=== PATIENT | male | born 1985 | race Caucasian/White ===

== ENCOUNTER 2017-07-04 11:24 | Day surgery (SDC) | payer MEDICARE, OTHER ==
[~2017-07-04 11:24] MED LIST: EFFEXOR XR75 MG PO; GLIMEPIRIDE2 MG PO; LISINOPRIL10 MG PO; MULTI VIT PO; PANTOPRAZOLE SO40 MG PO; TRILEPTAL150 MG PO
[2017-07-04 13:28] VITALS: BP 107/60
== END 2017-07-04 14:00 | disposition home or self-care (01) ==
LOC: ENDO 11:24
PROVIDERS: ATTEND Internal Medicine Gastroenterology
PROC: 0D758ZZ Dilation of Esophagus, Via Natural or Artificial Opening Endoscopic (ICD-10-PCS; principal; 2017-07-04)
PROC: 0DB98ZX Excision of Duodenum, Via Natural or Artificial Opening Endoscopic, Diagnostic (ICD-10-PCS; 2017-07-04)
PROC: 0DB58ZX Excision of Esophagus, Via Natural or Artificial Opening Endoscopic, Diagnostic (ICD-10-PCS; 2017-07-04)
PROC: 0DB48ZX Excision of Esophagogastric Junction, Via Natural or Artificial Opening Endoscopic, Diagnostic (ICD-10-PCS; 2017-07-04)
DX: K29.71 Gastritis, unspecified, with bleeding (principal); K21.0 Gastro-esophageal reflux disease with esophagitis; K22.8 Other specified diseases of esophagus; K44.9 Diaphragmatic hernia without obstruction or gangrene; I10 Essential (primary) hypertension; E11.9 Type 2 diabetes mellitus without complications

== ENCOUNTER 2017-12-23 17:03 | Emergency (ER) | payer MEDICARE, OTHER ==
[~2017-12-23] VITALS: Ht 185.4 cm; Wt 150.0 kg
[~2017-12-23 17:03] MED LIST changes: +DOXYCYC MONO100 M2 PO; +JANUVIA100 MG PO; +LANTUS100 UNIT/M SC; +LIPITOR20 M1 PO; +LORTAB 5/3255 MG PO; +NOVOLOG100 UNIT/M SC
[2017-12-23 19:40] VITALS: BP 120/75
== END 2017-12-23 19:45 | disposition home or self-care (01) ==
LOC: ED 17:03
DX: S63.502A Unspecified sprain of left wrist, initial encounter (principal); S63.92XA Sprain of unspecified part of left wrist and hand, initial encounter; E11.9 Type 2 diabetes mellitus without complications; I10 Essential (primary) hypertension; F41.9 Anxiety disorder, unspecified; F32.9 Major depressive disorder, single episode, unspecified; F17.210 Nicotine dependence, cigarettes, uncomplicated; W11.XXXA Fall on and from ladder, initial encounter; Y93.89 Activity, other specified; Y92.89 Other specified places as the place of occurrence of the external cause; Y99.0 Civilian activity done for income or pay

== ENCOUNTER 2018-08-23 16:12 | Emergency (ER) | payer OTHER ==
[~2018-08-23] VITALS: Ht 185.4 cm; Wt 192.6 kg
[2018-08-23] MEDS ORDERED: LEVEMIR FL100 UNIT/M SC (16:28)
[2018-08-23] MEDS ORDERED: DOXYCYC MONO100 M2 PO (16:29)
[2018-08-23] MEDS ORDERED: JANUVIA100 MG PO (16:30)
[2018-08-23] MEDS ORDERED: NOVOLOG FL100 UNIT/M SC (16:30)
[2018-08-23] MEDS ORDERED: SIMVASTATIN40 MG PO (16:31)
[2018-08-23] MEDS ORDERED: CELECOXIB200 MG PO (16:32)
[2018-08-23] MEDS ORDERED: MOBIC15 MG PO (16:49)
[2018-08-23 16:55] VITALS: BP 133/89
== END 2018-08-23 16:55 | disposition home or self-care (01) | DRG 951 ==
LOC: ED 16:12
DX: Z76.0 Encounter for issue of repeat prescription (principal); S66.902A Unspecified injury of unspecified muscle, fascia and tendon at wrist and hand level, left hand, initial encounter; E11.9 Type 2 diabetes mellitus without complications; I10 Essential (primary) hypertension; F17.200 Nicotine dependence, unspecified, uncomplicated; X58.XXXA Exposure to other specified factors, initial encounter; Y99.0 Civilian activity done for income or pay

== ENCOUNTER 2019-02-26 10:37 | Emergency (ER) | payer MEDICARE, OTHER ==
[~2019-02-26 10:37] MED LIST changes: +CELECOXIB200 MG PO; +LEVEMIR FL100 UNIT/M SC; +MOBIC15 MG PO; +NOVOLOG FL100 UNIT/M SC; +PANTOPRAZOLE SO40 M1 PO; -PANTOPRAZOLE SO40 MG PO; +SIMVASTATIN40 MG PO
[2019-02-26] MEDS ORDERED: PENICILLN VK500 MG PO (11:26)
[2019-02-26] MEDS ORDERED: VICODIN1 TA1 PO (11:32)
[2019-02-26 11:56] VITALS: BP 139/99
[2019-07-10] MEDS ORDERED: LYRICA150 MG PO (08:50)
[2019-07-10] MEDS ORDERED: PERCOCET 10/31 COMBO PO (08:52)
[2019-08-07] MEDS ORDERED: PERCOCET 10/31 COMBO PO (08:52)
[2019-08-07] MEDS ORDERED: LYRICA150 MG PO (08:53)
[2019-09-04] MEDS ORDERED: NEURONTIN600 MG PO (09:05)
[2019-09-04] MEDS ORDERED: PERCOCET 10/31 COMBO PO (09:06)
[2019-10-02] MEDS ORDERED: PERCOCET 10/31 COMBO PO (08:56)
[2019-10-02] MEDS ORDERED: NEURONTIN600 MG PO (08:57)
[2019-10-30] MEDS ORDERED: PERCOCET 10/31 COMBO PO (08:29)
[2019-11-27] MEDS ORDERED: PERCOCET 10/31 COMBO PO (08:24)
== END 2019-02-26 12:00 | disposition home or self-care (01) ==
LOC: ED 10:37
DX: K04.7 Periapical abscess without sinus (principal); K02.9 Dental caries, unspecified; E11.9 Type 2 diabetes mellitus without complications; I10 Essential (primary) hypertension; F17.210 Nicotine dependence, cigarettes, uncomplicated; F17.220 Nicotine dependence, chewing tobacco, uncomplicated; Z79.4 Long term (current) use of insulin

== ENCOUNTER 2019-03-10 13:43 | Observation (INO) | payer MEDICARE, OTHER ==
[~2019-03-10] VITALS: Ht 185.4 cm; Wt 145.0 kg
[~2019-03-10 13:43] MED LIST changes: +PENICILLN VK500 MG PO; +VICODIN1 TA1 PO
--- NOTE | 2019-03-10 13:55 | NUR ---
PT TO ROOM VIA WHEELCHAIR.
--- NOTE | 2019-03-10 14:30 | NUR ---
PT TOLERATING IV ABT WELL. PT HAS ERUPTION TO RT INNER GROIN, LT RIB AREA AND RT AXILLA.
[2019-03-10 14:41] LABS: HEMATOCRIT 43.8 % (39.0-50.0); HEMOGLOBIN 14.2 g/dl (14.0-18.0); IMMATURE GRANULOCYTES 0.5 % (0.0-5.0); MEAN CELL VOLUME 84.2 fL CALC (80.0-100.0); MEAN CORPUSCULAR HGB 27.3 pG CALC (26.0-32.0); MEAN CORPUSCULAR HGB CONC 32.4 g/L CALC (32.0-36.0); NEUT# 15.57 thou/uL (1.82-7.42); RED BLOOD COUNT 5.2 mill/uL (4.70-6.10); RED CELL DISTRI WIDTH 14.6 % (11.5-15.5)
[2019-03-10 15:04] LABS: ALKALINE PHOSPHATASE 102 u/l (38-126); ANION GAP 17 (6-22 (CALC)); BILIRUBIN, TOTAL 0.8 mg/dL (0.0-1.4); BUN 11 mg/dL (9-20); BUN/CREATININE RATIO 27 (12-20 (CALC)); CARBON DIOXIDE 21 mmol/l (22-30); CHLORIDE 101 mmol/l (95-108); CREATININE 0.4 mg/dL (0.7-1.3); GFR > 60 ML/MIN (>=60 (CALC)); GFR FOR AFR.AMER. > 60 ML/MIN (>=60 (CALC)); POTASSIUM 3.9 mmol/l (3.5-5.1); SGOT/AST 13 u/l (17-59); SODIUM 135 mmol/l (137-146); TOTAL PROTEIN 6.9 g/dL (6.3-8.2)
--- NOTE | 2019-03-10 16:55 | NUR ---
PT MAKES MX REQUESTS FOR DRINKS,ICE CHIPS AND WATER AND DIET SODA GIVEN FREQUENTLY. IVF BOLUS AND IV ABT CONTINUES. PT TOLERATING WELL
--- NOTE | 2019-03-10 17:33 | NUR ---
PT CONTINUES ON IV ABT IN NO DISTRESS. PT SITTING UP ON SIDE OF BED TO "ALLEVIATE MY BACK". PT UPDATED ON WAIT TIME AND ADMIT PLAN.FAMILY AT BEDSIDE.
--- NOTE | 2019-03-10 18:22 | NUR ---
PT ARRIVED TO MS2 VIA WHEELCHAIR ACCOMPANIED BY ER NURSE AND FAMILY MEMBERS. PT ALERT AND ORIENTED X3, ORIENTED TO ROOM AND CALL LIGHT. CALL LIGHT IN REACH,CONTINUE TO MONITOR.
[2019-03-10 18:27] VITALS: BP 142/20
--- NOTE | 2019-03-10 18:33 | NUR ---
TRANSPORTED TO HI VIA WITH SLIGHT DRY HEAVES IN ELEVATOR. PT STATES THIS IS D/T "MY HERNIA. THIS HAPPENS SOMETIMES". REPORTED TO YANI ORDONEZ ON MS
--- NOTE | 2019-03-10 19:00 | NUR ---
PT HAD 600ML OF TEACOLORED EMESIS. WILL NOTIFY MD FOR PRN ZOFRAN ORDER.
--- NOTE | 2019-03-10 19:30 | NUR ---
PT SITTING UPRIGHT IN BED, NO S/O DISTRESS NOTED, DENIES ANY NEEDS AT THIS TIME. CALL LIGHT AT SIDE AND PT REORIENTED TO ITS USE. BED ALARM IS ON.
[2019-03-10 20:26] LABS: URINE BILIRUBIN - DIPSTICK NEGATIVE (NEGATIVE); URINE BLOOD DIPSTICK NEGATIVE (NEGATIVE); URINE COLOR YELLOW; URINE GLUCOSE - DIPSTICK 500 mg/dL (NEGATIVE); URINE KETONE >=80 mg/dL (NEGATIVE); URINE LEUK ESTERASE NEGATIVE (NEGATIVE); URINE NITRITE - DIPSTICK NEGATIVE (Negative); URINE PH 5.5 (4.5-8.0); URINE PROTEIN - DIPSTICK NEGATIVE (NEG-TRACE); URINE SPECIFIC GRAVITY >=1.030; URINE UROBILINOGEN - DIPSTICK 0.2 E.U./dL (0.2)
--- NOTE | 2019-03-10 20:36 | NUR ---
PT MEDICATED FOR NAUSEA AND PAIN. PT SITTING ON SIDE OF THE BED. REPORTS HAVING JUST VOMITED, DAY NURSE IS AWARE AND MEASURED EMESIS. PT STATES HE HASN'T EATEN ALL DAY AND IS HUNGRY, POC DISCUSSED W/PT. SLACKLINE OPERATOR INFORMED PT THAT ICE CHIPS IS THE BEST THING IF HE IS N/V. HE STATES HE "CAN'T DO MORE ICECHIPS," REPORTS HE HAS ALREADY BEEN DOING THAT. ASKING FOR SODA, PROVIDED DIET GINERALE OVER ICE. WILL CONTINUE TO MONITOR.
--- NOTE | 2019-03-10 21:45 | NUR ---
PT REPORTS FEELING MUCH BETTER, ASKING FOR SOMETHING TO EAT, DISCUSSED OPTIONS W/PT AND HE AGREED TO TRY CHICKEN BROTH/PROVIDED.
--- NOTE | 2019-03-10 22:30 | NUR ---
PT REQUESTING ADDITIONAL CHICKEN BROTH W/GINGERALE/PROVIDED DIET GINGERALE AND BROTH PER REQUEST. REPORTS FEELING BETTER AFTER EATING THE FIRST CUP OF BROTH.
[2019-03-11 03:03] VITALS: BP 142/84
--- NOTE | 2019-03-11 03:14 | NUR ---
PT MEDICATED ORDERS PROVIDE FOR PAIN AND NAUSEA. PT PROVIDED BROTH AND [place]EN[place] ICE FOR COMFORT/REQUEST. DISCUSSED PT GETTING CLEANED UP, PROVIDED PT W/GAUZE FOR GROIN AREA, SMALL AMOUNT OF DISCHARGE COMING FROM ABCESS TO AREA. PT STATED HE MAY GET SHOWER LATER MORNING. NUTRITION CLUB AMBASSADOR OFFERED TO ASSIST IN CLEANING AREA W/NS. REFUSED.
[2019-03-11 07:24] VITALS: BP 144/78
--- NOTE | 2019-03-11 07:24 | NUR ---
PT RESTING IN BED, NO SIGNS OF DISTRESS NOTED, RESP EVEN AND UNLABORED. PT ALERT AND ORIENTED X3, STATES HE HAS PAIN 7/10, SOME NAUSEA BUT NO EMESIS. NOTED PT HAS MULTIPLE PUSTULES TO HIS BACK NONE OPEN OR DRAINING. PT STATES HE WAS PRESCRIBED DOXY PO TO TAKE FOR THE REST OF HIS LIFE BY HIS PCP PRIOR TO MOVING TO [place]. STATES ABSCESSES ARE NOTHING NEW TO HIM, DENIES HX OF MRSA. DISCUSSED POC, PT AGREES. CALL LIGHT IN REACH,CONTINUE TO MONITOR.
--- NOTE | 2019-03-11 08:45 | NUR ---
PT SITTING ON SIDE OF BED EATING BREAKFAST, DISCUSSED PHOTO NEEDED FOR DOCUMENTATION PURPOSES, PT AGREES. PHOTO OBTAINED, SEE CHART FOR PHOTO, NO DRAINAGE NOTED, AREA NOTED TO BE RED AND HARD, PT STATES HE HAD TRIED POPPING IT BY SQUEEZING IT. CALL LIGHT IN REACH,CONTINUE TO MONITOR.
--- NOTE | 2019-03-11 10:00 | NUR ---
PT RESTING IN BED WATCHING TV, DISCUSSED NEED FOR SWAB. PT C/O SEVERE PAIN 10/10 TO R INNER THIGH, STATES FROM SHOWER AND GUYLINE OPERATOR ASSESSING WOUND. PT MEDICATED FOR PAIN, AND SWAB OBTAINED. FOUL-SMELLING DRAINAGE NOTED ONCE PRESSURE APPLIED, CALL LIGHT IN REACH,CONTINUE TO MONITOR.
[2019-03-11 10:18] LABS: HEMATOCRIT 40.8 % (39.0-50.0); IMMATURE GRANULOCYTES 0.4 % (0.0-5.0); MEAN CELL VOLUME 85.5 fL CALC (80.0-100.0); MEAN CORPUSCULAR HGB 27.3 pG CALC (26.0-32.0); MEAN CORPUSCULAR HGB CONC 31.9 g/L CALC (32.0-36.0); NEUT# 8.35 thou/uL (1.82-7.42); RED BLOOD COUNT 4.77 mill/uL (4.70-6.10); RED CELL DISTRI WIDTH 14.6 % (11.5-15.5)
[2019-03-11 10:40] LABS: ALBUMIN 3.6 g/dL (3.2-5.0); ALKALINE PHOSPHATASE 76 u/l (38-126); ANION GAP 16 (6-22 (CALC)); BILIRUBIN, TOTAL 0.8 mg/dL (0.0-1.4); BUN 11 mg/dL (9-20); BUN/CREATININE RATIO 32 (12-20 (CALC)); CARBON DIOXIDE 20 mmol/l (22-30); CHLORIDE 100 mmol/l (95-108); CREATININE 0.3 mg/dL (0.7-1.3); GFR > 60 ML/MIN (>=60 (CALC)); GFR FOR AFR.AMER. > 60 ML/MIN (>=60 (CALC)); SGOT/AST 17 u/l (17-59); SODIUM 132 mmol/l (137-146); TOTAL PROTEIN 6.4 g/dL (6.3-8.2)
[2019-03-11 11:14] VITALS: BP 126/91
--- NOTE | 2019-03-11 12:44 | NUR ---
NEW ORDERS FOR COLD COMPRESS TO L INNER THIGH AND HOT COMPRESS TO R UNDER ARM. PT AGREES WITH PLAN. CALL LIGHT IN REACH,CONTINUE TO MONITOR.
--- NOTE | 2019-03-11 13:35 | NUR ---
KPAD APPLIED TO R UNDER ARM. MEDICATED FOR PAIN, CONTINUE TO MONITOR.
[2019-03-11 15:53] VITALS: BP 135/83
--- NOTE | 2019-03-11 16:00 | NUR ---
PT RESTING IN BED, FAMILY AT BEDSIDE. NEW ICE PACK PROVIDED, KPAD CONTINUES TO R ARM. CALL LIGHT IN REACH,CONTINUE TO MONITOR.
--- NOTE | 2019-03-11 17:33 | NUR ---
PT C/O NAUSEA AND PAIN , PT MEDICATED WITH ZOFRAN AND PERCOCET 2 COMBO. CALL LIGHT IN REACH, CONTINUE TO MONITOR.
--- NOTE | 2019-03-11 18:12 | NUR ---
PT SITTING IN BED, NEW ICE PACK PROVIDED. CALL LIGHT IN REACH,CONTINUE TO MONITOR.
[2019-03-11 18:35] VITALS: BP 134/66
--- NOTE | 2019-03-11 19:23 | NUR ---
PT STANDING IN BATHROOM STATING " THIS ONE UNDER MY ARM POPPED" . STATES THAT HIS ABSCESS WAS ITCHING AND WHEN HE SCRTCHED IT, IT POPPED. BLOOD NOTED TO TOWEL, AND SURROUNDING SKIN RED. FOUL SMELL NOTED. NEW GOWN PROVIDED. ABD PAD PLACED UNDER ARM WITH TUBULAR NETTING MESH APPLIED TO KEEP IT IN PLACE. ABD PAD IN GROIN AREA INSPECTED, SANGUINEOUS DRAINAGE NOTED. NO COMPLAINTS FROM PT AT THIS TIME. PT A&O X3. NO DISTRESS NOTED. DISCUSSED POC. ASSESSMENT COMPLETED. CALL LIGHT IN REACH. CONTINUE TO MONITOR.
--- NOTE | 2019-03-11 21:28 | NUR ---
PT C/O THROBBING PAIN 8/10 IN GROIN AREA WHERE ABSCESS IS LOCATED. WILL REASSES PAIN.
--- NOTE | 2019-03-11 23:00 | NUR ---
PT SITTING IN BED WATCHING TV. NO DISTRESS NOTED. PT STATES HE IS "COMFORTABLE" AT THIS TIME. CALL LIGHT IN REACH. CONTINUE TO MONITOR.
[2019-03-11 23:40] VITALS: BP 138/86
--- NOTE | 2019-03-11 23:55 | NUR ---
PT SITTING IN BED WATCHING TV. NO DISTRESS NOTED. CALL LIGHT IN REACH. CONTINUE TO MONITOR.
--- NOTE | 2019-03-12 01:27 | NUR ---
PT C/O SHARP PAIN 9/10 IN GROIN AREA WHERE ABSCESS IS LOCATED. WILL RE-EVALUATE PAIN
--- NOTE | 2019-03-12 03:27 | NUR ---
PT SITTING IN BED WATCHING TV. STATES THAT HE WAS ABLE TO SLEEP A FEW MINUTES. NO OTHER NEEDS AT THIS TIME. CALL LIGHT IN REACH. CONTINUE TO MONITOR.
[2019-03-12 04:10] VITALS: BP 119/56
--- NOTE | 2019-03-12 05:10 | NUR ---
PT RESTING IN BED. STATES HE WAS ABLE TO SLEEP A WHILE LONGER. NO NEEDS AT THIS TIME. CALL LIGHT IN REACH. CONTINUE TO MONITOR.
--- NOTE | 2019-03-12 06:09 | NUR ---
PT C/O OF SHARP/THROBBING PAIN IN GROIN AREA WHERE ABSCESS IS LOCATED. PERCOCET GIVEN WILL RE-EVALUATE PAIN
[2019-03-12 06:29] LABS: HEMATOCRIT 42.6 % (39.0-50.0); HEMOGLOBIN 13.4 g/dl (14.0-18.0); IMMATURE GRANULOCYTES 0.4 % (0.0-5.0); MEAN CELL VOLUME 86.1 fL CALC (80.0-100.0); MEAN CORPUSCULAR HGB 27.1 pG CALC (26.0-32.0); MEAN CORPUSCULAR HGB CONC 31.5 g/L CALC (32.0-36.0); NEUT# 8.74 thou/uL (1.82-7.42); RED BLOOD COUNT 4.95 mill/uL (4.70-6.10); RED CELL DISTRI WIDTH 14.6 % (11.5-15.5)
[2019-03-12 06:39] LABS: ALBUMIN 3.5 g/dL (3.2-5.0); ALKALINE PHOSPHATASE 88 u/l (38-126); BUN 10 mg/dL (9-20); BUN/CREATININE RATIO 26 (12-20 (CALC)); CHLORIDE 99 mmol/l (95-108); CREATININE 0.4 mg/dL (0.7-1.3); GFR > 60 ML/MIN (>=60 (CALC)); GFR FOR AFR.AMER. > 60 ML/MIN (>=60 (CALC)); POTASSIUM 3.8 mmol/l (3.5-5.1); SGOT/AST 15 u/l (17-59); SODIUM 134 mmol/l (137-146); TOTAL PROTEIN 6.4 g/dL (6.3-8.2)
[2019-03-12 06:40] LABS: ANION GAP 13 (6-22 (CALC)); BILIRUBIN, TOTAL 0.4 mg/dL (0.0-1.4); CARBON DIOXIDE 26 mmol/l (22-30)
[2019-03-12 07:33] VITALS: BP 107/67
[2019-03-12 08:21] VITALS: BP 107/67
--- NOTE | 2019-03-12 09:00 | NUR ---
PT SEEN AWAKE, ALERT, ORIENTED X 3. LUNGS CLEAR, RA, AMBULATORY IN ROOM. PT SEEN TO HAVE REDNESS PER ABSCESS TO RIGHT GROIN AND RIGHT UPPER ARM MEDIALLY. PT REQUESTS PAIN MEDS AVAILABLE.
[2019-03-12] MEDS ORDERED: BACTRIM DS1 TAB PO (10:07)
[2019-03-12] MEDS ORDERED: PERCOCET 5/325M1 TAB PO (10:07)
[2019-03-12] MEDS ORDERED: DOXYCYC MONO100 M2 PO (10:07)
--- NOTE | 2019-03-12 12:30 | NUR ---
PT HAS BEEN DISCHARGED TO HOME. PT VERBALIZES UNDERSTANDING OF DC INSTRUCTIONS, AMBULATES TO LOBBY INSTEAD OF WHEELCHAIR.
[2019-07-10] MEDS ORDERED: LYRICA150 MG PO (08:50)
[2019-07-10] MEDS ORDERED: PERCOCET 10/31 COMBO PO (08:52)
[2019-08-07] MEDS ORDERED: PERCOCET 10/31 COMBO PO (08:52)
[2019-08-07] MEDS ORDERED: LYRICA150 MG PO (08:53)
[2019-09-04] MEDS ORDERED: NEURONTIN600 MG PO (09:05)
[2019-09-04] MEDS ORDERED: PERCOCET 10/31 COMBO PO (09:06)
[2019-10-02] MEDS ORDERED: PERCOCET 10/31 COMBO PO (08:56)
[2019-10-02] MEDS ORDERED: NEURONTIN600 MG PO (08:57)
[2019-10-30] MEDS ORDERED: PERCOCET 10/31 COMBO PO (08:29)
[2019-11-27] MEDS ORDERED: PERCOCET 10/31 COMBO PO (08:24)
== END 2019-03-12 12:28 | disposition home or self-care (01) ==
LOC: ED 13:43 → ED-I 15:58 → ED 16:31 → MS2 16:32
PROVIDERS: Emergency Medicine; Nurse Practitioner Family; ADMIT Internal Medicine; ATTEND Internal Medicine
DX: L03.115 Cellulitis of right lower limb (principal); L02.416 Cutaneous abscess of left lower limb; L02.413 Cutaneous abscess of right upper limb; L03.113 Cellulitis of right upper limb; L73.9 Follicular disorder, unspecified; L70.0 Acne vulgaris; E11.65 Type 2 diabetes mellitus with hyperglycemia; I10 Essential (primary) hypertension; F17.200 Nicotine dependence, unspecified, uncomplicated; K21.9 Gastro-esophageal reflux disease without esophagitis; E78.5 Hyperlipidemia, unspecified; E66.8 Other obesity; Z68.41 Body mass index [BMI] 40.0-44.9, adult; Z79.4 Long term (current) use of insulin; Z91.11 Patient's noncompliance with dietary regimen
CPT/HCPCS: G0378

== ENCOUNTER 2019-03-15 | Inpatient (IN) | payer MEDICARE, OTHER ==
--- NOTE | 2019-03-14 17:54 | NUR ---
TO ROOM VIA WHEELCHAIR
--- NOTE | 2019-03-14 18:10 | NUR ---
PT PRESENTS WITH COMPLAINTS OF PAIN 10/10 OF SCROTAL PAIN. PT STATES THAT HE HAS SEVERE ACHNE THAT CAN CAUSE CYSTS AND BOILS ALL OVER BODY. IN THE AREAS OF INCREASE SWEAT CYSTS THAT BURST CAUSE OPEN SORES AND SOME ARE DRAINING AND INFECTED IN THE INNER RIGHT THIGH. THAT REDNESS, SWELLING AND INFECTION HAS SPREAD TO HIS TESTICLES THAT ARE ENLARGED AND RED. PT STATES BEING IN INCREASING PAIN. WILL CONTINUE TO MONITOR PT TEMP IS 101.7 F
[2019-03-14 18:40] LABS: HEMATOCRIT 38.2 % (39.0-50.0); HEMOGLOBIN 12.5 g/dl (14.0-18.0); IMMATURE GRANULOCYTES 0.4 % (0.0-5.0); MEAN CELL VOLUME 83.4 fL CALC (80.0-100.0); MEAN CORPUSCULAR HGB 27.3 pG CALC (26.0-32.0); MEAN CORPUSCULAR HGB CONC 32.7 g/L CALC (32.0-36.0); NEUT# 6.53 thou/uL (1.82-7.42); RED BLOOD COUNT 4.58 mill/uL (4.70-6.10); RED CELL DISTRI WIDTH 14.2 % (11.5-15.5)
[2019-03-14 19:01] LABS: ALBUMIN 3.4 g/dL (3.2-5.0); ALKALINE PHOSPHATASE 75 u/l (38-126); ANION GAP 13 (6-22 (CALC)); BILIRUBIN, TOTAL 0.3 mg/dL (0.0-1.4); BUN 9 mg/dL (9-20); BUN/CREATININE RATIO 25 (12-20 (CALC)); CARBON DIOXIDE 24 mmol/l (22-30); CHLORIDE 101 mmol/l (95-108); CREATININE 0.3 mg/dL (0.7-1.3); GFR > 60 ML/MIN (>=60 (CALC)); GFR FOR AFR.AMER. > 60 ML/MIN (>=60 (CALC)); POTASSIUM 3.9 mmol/l (3.5-5.1); SGOT/AST 14 u/l (17-59); SODIUM 134 mmol/l (137-146); TOTAL PROTEIN 6.1 g/dL (6.3-8.2)
--- NOTE | 2019-03-14 19:36 | NUR ---
PT AT RADIOLOGY.
[2019-03-14 19:38] LABS: URINE BLOOD DIPSTICK NEGATIVE (NEGATIVE); URINE COLOR YELLOW; URINE GLUCOSE - DIPSTICK NEGATIVE (NEGATIVE); URINE KETONE 40 mg/dL (NEGATIVE); URINE NITRITE - DIPSTICK NEGATIVE (Negative); URINE PH 5.5 (4.5-8.0); URINE PROTEIN - DIPSTICK NEGATIVE (NEG-TRACE); URINE SPECIFIC GRAVITY 1.015; URINE UROBILINOGEN - DIPSTICK 0.2 E.U./dL (0.2)
--- NOTE | 2019-03-14 20:08 | NUR ---
PT STATES THAT AFTER RADIOLOGY VISIT FOR ULTRASOUND HE IS IN PAIN OF 10/10. IT WAS REASSESSED THAT IF PAIN MEDICATION HELPED, BUT PT STATES THAT BEFORE ULTRASOUND IT WAS 6/10 AND AFTER TESTICULAR MANIPULATION IT IS 10/10. NOTIFIED.
[2019-03-14 20:40] LABS: URINE BILIRUBIN - DIPSTICK SMALL (NEGATIVE); URINE LEUK ESTERASE SMALL (NEGATIVE)
[2019-03-14 20:53] LABS: URINE SQUAMOUS EPITHELIAL CELL FEW EPI/hpf (0-FEW)
[2019-03-14 21:04] LABS: BARBITURATES NEGATIVE (NEGATIVE); COCAINE NEGATIVE (NEGATIVE); METHADONE NEGATIVE (NEGATIVE); OXCYCODONE POSITIVE (NEGATIVE); TETRAHYDROCANNABIONOL POSITIVE (NEGATIVE); TRICYLIC ANTIDEPRESSANTS NEGATIVE (NEGATIVE)
--- NOTE | 2019-03-14 21:16 | NUR ---
MEDICATION GIVIN TO PT. PT STATES THAT HIS BEGINNING PAIN BEFORE THIS MEDICATION IS 8/10. PT DENIES ANY NEEDS AT THIS TIME.
--- NOTE | 2019-03-14 21:58 | NUR ---
CALLED ICU CORNELIUS FOR REPORT
--- NOTE | 2019-03-14 22:46 | NUR ---
PT ARRIVED TO UNIT VIA STRETCHER WITH ER STAFF; ALERT AND ORIENTED X 3; FIANCE AT BEDSIDE. PT AMBULATED TO BED WITH STEADY GAIT AND WEIGHT OBTAINED. C/O 9/10 PAIN TO GROIN AND RIGHT THIGH; REDNESS AND WARMTH NOTED TO ENTIRE RLE AND IT IS NOTICABLY LARGER; OPEN AREA IN CREVICE BETWEEN TESTICLES AND RIGHT THIGH; PHOTOS OBTAINED AND PLACED IN CHART. RESPIRATIONS EVEN AND UNLABROED ON ROOM AIR. LUNGS ARE CLEAR; VSS. ORIENTED TO ROOM AND CALL LIGHT SYSTEM. PLAN OF CARE DISCUSSED. PT ENCOURAGED TO VERBALIZE CONCERNS. STATES UNDERSTANDING. SAFETY MEASURES IN PLACE. CALL LIGHT WITHIN REACH.
--- NOTE | 2019-03-14 22:48 | NUR ---
PT TO FLOOR VIA STRETCHER...S.O. AT BEDSIDE.
[2019-03-14 22:50] VITALS: BP 145/62
--- NOTE | 2019-03-14 23:16 | NUR ---
ACCU CHECK 221; LEVEMIR GIVEN ALONG WITH OTHER SCHEDULED MEDICATIONS. SNACK PROVIDED. PT ASKING FOR PAIN MEDICATION.
[~2019-03-15] MED LIST changes: +BACTRIM DS1 TAB PO; +PERCOCET 5/325M1 TAB PO
--- NOTE | 2019-03-15 00:47 | NUR ---
IV SITE TO LAC OCCLUDED; D/C'D AND NEW SITE PLACED TO RAC. ZOSYN GIVEN LATE DUE TO LACK OF VENOUS ACCESS. PT REQUESTING MORE SNACKS. PERCOCET GIVEN FOR 8/10 GROIN PAIN.
[2019-03-15 01:30] VITALS: BP 112/72
--- NOTE | 2019-03-15 02:08 | NUR ---
PT SITTING UP IN BED WATCHING TV; ALERT AND ORIENTED. STATES HE FEELS MUCH BETTER AFTER PERCOCET AND SNACKS. NO REQUESTS OR CONCERNS AT THIS TIME. CALL LIGHT WITHIN REACH.
--- NOTE | 2019-03-15 02:28 | NUR ---
ALL PROCESS INTERVENTIONS FOR INITITAL ADMISSION SHOULD BE DOCUMENTED ONLY FOR 03/14/19 AT 2245. ALL INTERVENTIONS CHARTED FOR 03/13/19 ARE CHARTED IN ERROR FOR WRONG DATE.
[2019-03-15 05:15] VITALS: BP 135/84
--- NOTE | 2019-03-15 07:30 | NUR ---
awake in bed; no apparent distress noted; assessment completed at this time; pt alert and oriented; complaints of pain to right inner groin area; no n/v noted; resp even and unlabored; lungs clear with faint wheezing noted; skin color wnl; ra; hr reg; strong pulses; no pedal edema noted; abd firm/ distended with bs present; no bm noted per teletypewriter installer; pt admits to voiding without complication; no urine to inspect at this time; #20 flushed and patent to rac; no redness or edema noted at site; redness noted to inner right thigh and leg; purulent drainage noted to inner right thigh; abd pad intact with ice packs; pt admits to decreased swelling to scrotum; plan of care/ am meds explained; call light within reach; will continue to monitor
--- NOTE | 2019-03-15 08:03 | NUR ---
awake in bed conversing on cell phone and eating breakfast; no apparent distress noted; offers no complaints at this time; call light within reach; will continue to monitor
--- NOTE | 2019-03-15 08:20 | NUR ---
pt completed breakfast tray; pt communications equipment installer light requesting food; diabetic diet explained; pt requesting additional food; will continue to monitor
--- NOTE | 2019-03-15 09:23 | NUR ---
S: ODALYS CHAVEZ is a 33 M who presents with Scrotal skin Cellulitis. He has a history of DM, HTN, Hernia, Anxiety/Depression, Obesity. All medications in patient's chart were reviewed. O: VS: BP: 135/83 mmHg , P: 81 bpm, RR: 22 breath per minutes,T: 97.3 F W: 159.891 kg, HT: 185.42 cm, Scr= 0.3 mg/dL,CrCl= 250 ml/min A: Blood culture is pending. Urine culture is pending. P: Patient is on Zosyn 3.375 GM IV Q6H. Vancomycin ordered for pharmacy to dose. Start Vancomycin 1,500 MG IV Q8H. Vancomycin trough is drawn 30 minutes before the 4th dose on 03/16/19 at 0930. Vancomycin goal trough is between 10-15 mcg/ml. Pharmacy will follow and or advise on antibiotics use as needed.
[2019-03-15 09:24] VITALS: BP 135/83
--- NOTE | 2019-03-15 10:11 | NUR ---
awake in bed; family present at bedside; medicated for complaints of pain; iv intact and patent; abt infusing without complication; call light within reach; will continue to monitor
--- NOTE | 2019-03-15 10:15 | NUR ---
Dr Painting present at bedside to assess pt and discuss plan of care;
--- NOTE | 2019-03-15 11:12 | NUR ---
anest at bedside
--- NOTE | 2019-03-15 12:15 | NUR ---
pt awake in bed; no apparent distress noted; pt medicated with pain meds as per request; pt requesting nicotine patch; will notify MD; iv intact and patent; call light within reach; will continue to monitor
[2019-03-15 14:00] VITALS: BP 112/68
--- NOTE | 2019-03-15 14:03 | NUR ---
awake in bed conversing on cell phone; no apparent distress noted; iv intact; call light within reach; will continue to monitor
--- NOTE | 2019-03-15 16:15 | NUR ---
awake in bed; spouse at bedside; no apparent distress noted; iv intact; call light within reach; will continue to monitor
--- NOTE | 2019-03-15 17:48 | NUR ---
dietary notified of pt request for A PITCHER of unsweet tea with each meal; provided
--- NOTE | 2019-03-15 18:15 | NUR ---
awake in bed; medicated with pain meds as per request; offers no additional complaints; iv intact and patent; abt infusing without complication; pt with complaints of newly developed "bump" to left lat elbow area; form to touch/ no drainage/no opening; spouse at bedside; plan of care for surgery explained; spouse to arrive at 0700/ surgery for 0800; call light within reach
--- NOTE | 2019-03-15 19:00 | NUR ---
PT LAYS WITH HOB 45 DEGREES. ON ROOM AIR. RFA IV INTACT. RIGH THIGH ABSCESS ASSESSED, PT ABLE TO CHANGE GAUZE PAD ON HIS OWN. HEAD TO TOE NURSING ASSESSMENT PERFORMES. ON ROOMAIR, NO SOB NOTED. POC DISCUSSED. KNOWS HE WILL BE NPO AFTER MIDNIGHT. REPORTS PAIN IS 9 WITH HIM MOVING HIS THIGH AND CHANGING THE GAUZE PAD ON HIS THIGH. EXPRESSES HIS CONCERN FOR HIM BEING OUT SICK FROM WORK AND FAMILY TIME. CALL LIGHT WITHIN REACH. UP AD ADAM. SELF REPSOITIONS.
--- NOTE | 2019-03-15 21:15 | NUR ---
PT GIVEN ICE PACK AND TURKEY SANDWICH HE REQUESTED. SITS UP. WATCHES TV. NO ACUTE DISTRES SSHOWN.
[2019-03-15 22:00] VITALS: BP 118/77
[2019-03-16] VITALS (9 sets, daily range): BP systolic 93–153; BP diastolic 66–81
--- NOTE | 2019-03-16 | NUR ---
PT LAYS WITH HOB 45 DEGREES. RESTS WITH EYES CLOSED. TV OFF. NO ACUTE DISTRES SSHOWN.
--- NOTE | 2019-03-16 00:11 | NUR ---
PAIN MEDICATION GIVEN PER REQUEST.
--- NOTE | 2019-03-16 02:10 | NUR ---
YANI SPANGLER IN ROOM TO MEDICATE 0200 VANCO DUE. PT LSEEPING. CALL LIGHT WITHIN REACH.
--- NOTE | 2019-03-16 04:22 | NUR ---
PATIENT LAYS WITH HOB 45 DEGREES. EASILY AWAKENS WITH NOISE. NO COMPLAINTS, NO NEEDS. CALL LIGHT WITHIN REACH.
[2019-03-16 04:56] LABS: HEMATOCRIT 34.2 % (39.0-50.0); IMMATURE GRANULOCYTES 0.4 % (0.0-5.0); MEAN CELL VOLUME 85.5 fL CALC (80.0-100.0); MEAN CORPUSCULAR HGB 27.5 pG CALC (26.0-32.0); MEAN CORPUSCULAR HGB CONC 32.2 g/L CALC (32.0-36.0); NEUT# 3.94 thou/uL (1.82-7.42); RED CELL DISTRI WIDTH 14.3 % (11.5-15.5)
[2019-03-16 05:16] LABS: ALBUMIN 2.8 g/dL (3.2-5.0); ALKALINE PHOSPHATASE 85 u/l (38-126); ANION GAP 10 (6-22 (CALC)); BUN 8 mg/dL (9-20); BUN/CREATININE RATIO 22 (12-20 (CALC)); CARBON DIOXIDE 25 mmol/l (22-30); CHLORIDE 105 mmol/l (95-108); CREATININE 0.4 mg/dL (0.7-1.3); GFR > 60 ML/MIN (>=60 (CALC)); GFR FOR AFR.AMER. > 60 ML/MIN (>=60 (CALC)); POTASSIUM 3.9 mmol/l (3.5-5.1); SGOT/AST 13 u/l (17-59); SODIUM 137 mmol/l (137-146); TOTAL PROTEIN 5.4 g/dL (6.3-8.2)
[2019-03-16 05:17] LABS: BILIRUBIN, TOTAL 0.1 mg/dL (0.0-1.4)
--- NOTE | 2019-03-16 08:00 | NUR ---
PT ALERT AND ORIENTED X 3. PT REMAINS NPO FOR SURGICAL PROCEDURE SOON. PT APPEARS UNCOMFORTABLE WITH MOVEMENT PER RIGHT GROIN ABSCESS. NO ACUTE DISTRESS, TO OR SOON.
--- NOTE | 2019-03-16 12:00 | NUR ---
PT RETURNED FROM OR AFTER PROCEDURE, UNCOMFORTABLE WITH PAIN UPON EXITING STRETCHER. PT MEDICATED FOR PAIN NEEDED. RIGHT GROIN AREA SEEN TO HAVE DRESSING OVER IT.
--- NOTE | 2019-03-16 14:51 | NUR ---
DRESSING CHANGED, REPACKED. PT TOLERATED WELL, MEDICATED AFTERWARD. WOUND SEEN 3-4 INCHES DEEP, PACKING REMOVED WITH RESISTANCE NOTED.
--- NOTE | 2019-03-16 15:36 | NUR ---
S: ODALYS CHAVEZ is a 33 M who presents with cellulitis. He has a history of T2DM, HTN, tobacco use, and anxiety/depression. All medications in patient's chart were reviewed. O: VS: BP: 105/65 mmHg, P: 87 beats/min, RR: 16 breaths/min, T: 97.9 F W: 160 kg, HT: 73 in, Scr: 0.4, CrCl: 250 ml/min Vancomycin trough on 03/16/19: 8 mcg/mL A: Blood culture is pending. Urine culture is complete and shows no growth. Wound culture is pending. Vancomycin trough is subtherapeutic, however pt is morbidly obese. Trough is expected to increase. Will re-check after 4 more doses. P: Patient is on Zosyn 3.375 gm IV Q6H. Vancomycin ordered for pharmacy to dose. Continue Vancomycin 1500 mg IV Q8H. Vancomycin trough is to be drawn on 03/17/19 at 17:30. Vancomycin goal trough is between 10-15 mcg/ml. Pharmacy will follow and or advise on antibiotics use as needed.
--- NOTE | 2019-03-16 17:54 | NUR ---
PT HAS AMBULATED AROUND NURSING STATION AND IN HALLWAY WITH . PT MEDICATED FOR PAIN NEEDED. WOUND CONTINES TO DRAIN EXPECTED.
--- NOTE | 2019-03-16 19:29 | NUR ---
PATIENT GIVEN DILAUDID BEFORE DRESSING CHANGE. WOUND HAS SEROUSSANGINUOUS DRAINAGE, LARGE AMOUNT, SOAKS THROUGH DRESSING. PATIENT TOLERATES WELL, FIANCE AT BEDSIDE. ABLE TO STAND UP TO CHANGE DIRTY PAD. NOW LAYS IN BED. CALL LIGHT WITHIN REACH.
--- NOTE | 2019-03-16 21:39 | NUR ---
PATIENT TOLERATES MEDS WELL. CHRISTELLE GE PER REQUEST. CALL LIGHT WITHIN REACH.
--- NOTE | 2019-03-16 22:54 | NUR ---
PERCOCET GIVEN PER REQUEST BY NURSE BOURNE.
--- NOTE | 2019-03-16 23:39 | NUR ---
PT REQUESTS DILAUDID, GIVEN BY NURSE BOURNE.
--- NOTE | 2019-03-17 01:24 | NUR ---
PT RESTS WITH EYES CLOSED. TV IS ON. NO ACUTE DISTRESS SHOWN. CALL LIGHT WITHIN REACH.
--- NOTE | 2019-03-17 05:50 | NUR ---
PT REQUESTS PAIN MEDICATION, PROVIDED. STANDS UP TO USE URINAL. CALL LIGHT WITHIN RECH.
[2019-03-17 07:15] VITALS: BP 110/76
--- NOTE | 2019-03-17 07:16 | NUR ---
PT VSS, NO S/S OF DISTRESS NOTED, IVF INFUSING, PT STATES PAIN 08/30, MEDICATED WITH ORAL PRN MED PER MAR, WILL CONTINUE TO MONITOR
[2019-03-17 11:49] VITALS: BP 138/81
--- NOTE | 2019-03-17 12:38 | NUR ---
PT VSS, NO S/S OF DISTRESS NOTED, EATING LUNCH, IV ANTIBIOOTIC INFUSING, WILL CONTINUE TO MONITOR.
--- NOTE | 2019-03-17 14:17 | NUR ---
PT RESTING COMFORTABLY IN BED, VSS, NO S/S OF DISTRESS NOTED, VANCO INFUSING
--- NOTE | 2019-03-17 15:45 | NUR ---
PT HAS NS 500ML INFUSING, VSS, NO S/S OF DISTRESS NOTED, MEDICATED FOR PAIN PER EMAR, WILL CONTINUE TO MONITOR.
[2019-03-17] MEDS ORDERED: BACTRIM DS1 TAB PO (16:24)
[2019-03-17] MEDS ORDERED: PERCOCET 5/325M1 TAB PO (16:27)
[2019-03-17 16:54] VITALS: BP 125/80
--- NOTE | 2019-03-17 17:05 | NUR ---
PT VSS, NO S/S OF DISTRESS NOTED, PT EDUCATED ON NEW MEDS OF PERCOCET, AND BACTRIUM, IV REMOVED, WORK NOTE GIVEN, RX GIVEN, INSTRUCTED ON HOME HEALTH AND DRESSING CHANGES.AMBULATED OUT WITH SPOUSE.
[2019-07-10] MEDS ORDERED: LYRICA150 MG PO (08:50)
[2019-07-10] MEDS ORDERED: PERCOCET 10/31 COMBO PO (08:52)
[2019-08-07] MEDS ORDERED: PERCOCET 10/31 COMBO PO (08:52)
[2019-08-07] MEDS ORDERED: LYRICA150 MG PO (08:53)
[2019-09-04] MEDS ORDERED: NEURONTIN600 MG PO (09:05)
[2019-09-04] MEDS ORDERED: PERCOCET 10/31 COMBO PO (09:06)
[2019-10-02] MEDS ORDERED: PERCOCET 10/31 COMBO PO (08:56)
[2019-10-02] MEDS ORDERED: NEURONTIN600 MG PO (08:57)
[2019-10-30] MEDS ORDERED: PERCOCET 10/31 COMBO PO (08:29)
[2019-11-27] MEDS ORDERED: PERCOCET 10/31 COMBO PO (08:24)
[2019-12-25] MEDS ORDERED: PERCOCET 10/31 COMBO PO (07:31)
[2019-12-25] MEDS ORDERED: NEURONTIN600 MG PO (07:32)
[2020-01-29] MEDS ORDERED: PERCOCET 10/31 COMBO PO (09:00)
[2020-02-26] MEDS ORDERED: PERCOCET 10/31 COMBO PO (09:09)
[2020-02-26] MEDS ORDERED: NEURONTIN600 MG PO (09:12)
[2020-03-27] MEDS ORDERED: PERCOCET 10/31 COMBO PO (08:56)
[2020-04-24] MEDS ORDERED: PERCOCET 10/31 COMBO PO (08:30)
[2020-05-22] MEDS ORDERED: PERCOCET 10/31 COMBO PO (08:07)
[2020-05-22] MEDS ORDERED: NEURONTIN600 MG PO (08:14)
[2020-06-24] MEDS ORDERED: METFORMIN500 M2 PO (07:53)
[2020-06-24] MEDS ORDERED: PERCOCET 10/31 COMBO PO (08:17)
[2020-06-24] MEDS ORDERED: NEURONTIN600 MG PO (08:18)
== END 2019-03-17 17:00 | disposition home health service (06) | DRG 580 ==
PROVIDERS: Emergency Medicine; Internal Medicine; ADMIT Internal Medicine
PROC: 0Y950ZZ Drainage of Right Inguinal Region, Open Approach (ICD-10-PCS; principal; 2019-03-16)
DX: L02.214 Cutaneous abscess of groin (principal); Z68.42 Body mass index [BMI] 45.0-49.9, adult; L02.415 Cutaneous abscess of right lower limb; L03.115 Cellulitis of right lower limb; L02.416 Cutaneous abscess of left lower limb; L02.413 Cutaneous abscess of right upper limb; L03.113 Cellulitis of right upper limb; Z68.41 Body mass index [BMI] 40.0-44.9, adult; N49.2 Inflammatory disorders of scrotum; E11.65 Type 2 diabetes mellitus with hyperglycemia; I10 Essential (primary) hypertension; E78.5 Hyperlipidemia, unspecified; F17.210 Nicotine dependence, cigarettes, uncomplicated; Z79.4 Long term (current) use of insulin; E66.01 Morbid (severe) obesity due to excess calories; L73.9 Follicular disorder, unspecified; L70.0 Acne vulgaris; F17.200 Nicotine dependence, unspecified, uncomplicated; K21.9 Gastro-esophageal reflux disease without esophagitis; E66.8 Other obesity; Z91.11 Patient's noncompliance with dietary regimen
CPT/HCPCS: J0131; J1650; J3370

== ENCOUNTER 2019-04-02 | Emergency (ER) | payer MEDICARE, OTHER ==
[2019-07-10] MEDS ORDERED: LYRICA150 MG PO (08:50)
[2019-07-10] MEDS ORDERED: PERCOCET 10/31 COMBO PO (08:52)
[2019-08-07] MEDS ORDERED: PERCOCET 10/31 COMBO PO (08:52)
[2019-08-07] MEDS ORDERED: LYRICA150 MG PO (08:53)
[2019-09-04] MEDS ORDERED: NEURONTIN600 MG PO (09:05)
[2019-09-04] MEDS ORDERED: PERCOCET 10/31 COMBO PO (09:06)
[2019-10-02] MEDS ORDERED: PERCOCET 10/31 COMBO PO (08:56)
[2019-10-02] MEDS ORDERED: NEURONTIN600 MG PO (08:57)
[2019-10-30] MEDS ORDERED: PERCOCET 10/31 COMBO PO (08:29)
[2019-11-27] MEDS ORDERED: PERCOCET 10/31 COMBO PO (08:24)
== END 2019-04-02 12:10 | disposition home or self-care (01) ==
DX: S60.212A Contusion of left wrist, initial encounter (principal); E11.9 Type 2 diabetes mellitus without complications; I10 Essential (primary) hypertension; F17.210 Nicotine dependence, cigarettes, uncomplicated; W22.09XA Striking against other stationary object, initial encounter; Y93.89 Activity, other specified; Y92.009 Unspecified place in unspecified non-institutional (private) residence as the place of occurrence of the external cause

== ENCOUNTER 2019-04-11 | Emergency (ER) | payer MEDICARE, OTHER ==
[2019-04-11] MEDS ORDERED: DOXYCYCL HYC100 MG PO (20:58)
[2019-07-10] MEDS ORDERED: LYRICA150 MG PO (08:50)
[2019-07-10] MEDS ORDERED: PERCOCET 10/31 COMBO PO (08:52)
[2019-08-07] MEDS ORDERED: PERCOCET 10/31 COMBO PO (08:52)
[2019-08-07] MEDS ORDERED: LYRICA150 MG PO (08:53)
[2019-09-04] MEDS ORDERED: NEURONTIN600 MG PO (09:05)
[2019-09-04] MEDS ORDERED: PERCOCET 10/31 COMBO PO (09:06)
[2019-10-02] MEDS ORDERED: PERCOCET 10/31 COMBO PO (08:56)
[2019-10-02] MEDS ORDERED: NEURONTIN600 MG PO (08:57)
[2019-10-30] MEDS ORDERED: PERCOCET 10/31 COMBO PO (08:29)
[2019-11-27] MEDS ORDERED: PERCOCET 10/31 COMBO PO (08:24)
== END 2019-04-11 21:15 | disposition home or self-care (01) ==
DX: Z76.5 Malingerer [conscious simulation] (principal); M25.532 Pain in left wrist; E11.9 Type 2 diabetes mellitus without complications; I10 Essential (primary) hypertension; E66.01 Morbid (severe) obesity due to excess calories; Z79.4 Long term (current) use of insulin; F17.220 Nicotine dependence, chewing tobacco, uncomplicated

== ENCOUNTER 2019-08-18 14:20 | Emergency (ER) | payer MEDICARE, OTHER ==
[~2019-08-18] VITALS: Ht 185.4 cm; Wt 190.0 kg
[~2019-08-18 14:20] MED LIST changes: +DOXYCYCL HYC100 MG PO; +LYRICA150 MG PO; +PERCOCET 10/31 COMBO PO
[2019-08-18 15:29] LABS: ALKALINE PHOSPHATASE 110 u/l (38-126); ANION GAP 15 (6-22 (CALC)); BUN 13 mg/dL (9-20); BUN/CREATININE RATIO 23 (12-20 (CALC)); CARBON DIOXIDE 26 mmol/l (22-30); CHLORIDE 100 mmol/l (95-108); CREATININE 0.6 mg/dL (0.7-1.3); GFR > 60 ML/MIN (>=60 (CALC)); GFR FOR AFR.AMER. > 60 ML/MIN (>=60 (CALC)); LIPASE 83 u/l (23-300); POTASSIUM 3.9 mmol/l (3.5-5.1); SODIUM 137 mmol/l (137-146)
[2019-08-18 15:31] LABS: ALBUMIN 4.9 g/dL (3.2-5.0); BILIRUBIN, TOTAL 0.3 mg/dL (0.0-1.4); SGOT/AST 31 u/l (17-59); TOTAL PROTEIN 8.4 g/dL (6.3-8.2)
[2019-08-18 15:39] LABS: HEMOGLOBIN 14.9 g/dl (14.0-18.0); IMMATURE GRANULOCYTES 0.4 % (0.0-5.0); MEAN CELL VOLUME 80.8 fL CALC (80.0-100.0); MEAN CORPUSCULAR HGB 26.2 pG CALC (26.0-32.0); MEAN CORPUSCULAR HGB CONC 32.5 g/dL CAL (32.0-36.0); NEUT# 9.61 thou/uL (1.82-7.42); RED BLOOD COUNT 5.68 mill/uL (4.70-6.10); RED CELL DISTRI WIDTH 14.6 % (11.5-15.5)
[2019-08-18 15:40] LABS: HEMATOCRIT 45.9 % (39.0-50.0)
[2019-08-18 16:51] LABS: URINE BILIRUBIN - DIPSTICK NEGATIVE (NEGATIVE); URINE BLOOD DIPSTICK NEGATIVE (NEGATIVE); URINE COLOR YELLOW; URINE GLUCOSE - DIPSTICK 500 mg/dL (NEGATIVE); URINE KETONE 15 mg/dL (NEGATIVE); URINE LEUK ESTERASE NEGATIVE (NEGATIVE); URINE NITRITE - DIPSTICK NEGATIVE (Negative); URINE PROTEIN - DIPSTICK TRACE mg/dL (NEG-TRACE); URINE SPECIFIC GRAVITY >=1.030; URINE UROBILINOGEN - DIPSTICK 0.2 E.U./dL (0.2)
[2019-08-18 18:07] VITALS: BP 152/65
[2019-09-04] MEDS ORDERED: NEURONTIN600 MG PO (09:05)
[2019-09-04] MEDS ORDERED: PERCOCET 10/31 COMBO PO (09:06)
[2019-10-02] MEDS ORDERED: PERCOCET 10/31 COMBO PO (08:56)
[2019-10-02] MEDS ORDERED: NEURONTIN600 MG PO (08:57)
[2019-10-30] MEDS ORDERED: PERCOCET 10/31 COMBO PO (08:29)
[2019-11-27] MEDS ORDERED: PERCOCET 10/31 COMBO PO (08:24)
== END 2019-08-18 18:07 | disposition home or self-care (01) ==
LOC: ED 14:20
PROVIDERS: Family Medicine
DX: R10.13 Epigastric pain (principal); E11.9 Type 2 diabetes mellitus without complications; I10 Essential (primary) hypertension; E66.01 Morbid (severe) obesity due to excess calories; F17.210 Nicotine dependence, cigarettes, uncomplicated; F17.220 Nicotine dependence, chewing tobacco, uncomplicated; Z79.4 Long term (current) use of insulin

== ENCOUNTER 2019-09-22 20:02 | Inpatient (IN) | payer MEDICARE, OTHER ==
[~2019-09-22] VITALS: Ht 185.4 cm; Wt 168.0 kg
[~2019-09-22 20:02] MED LIST changes: +NEURONTIN600 MG PO
[2019-09-22] MEDS ORDERED: SIMVASTATIN40 MG PO (20:46)
[2019-09-22 20:49] LABS: HEMATOCRIT 40.5 % (39.0-50.0); HEMOGLOBIN 13.2 g/dl (14.0-18.0); IMMATURE GRANULOCYTES 0.4 % (0.0-5.0); MEAN CELL VOLUME 83.7 fL CALC (80.0-100.0); MEAN CORPUSCULAR HGB 27.3 pG CALC (26.0-32.0); MEAN CORPUSCULAR HGB CONC 32.6 g/dL CAL (32.0-36.0); NEUT# 12.33 thou/uL (1.82-7.42); RED BLOOD COUNT 4.84 mill/uL (4.70-6.10)
[2019-09-22 21:02] LABS: ALKALINE PHOSPHATASE 114 u/l (38-126); ANION GAP 15 (6-22 (CALC)); BUN 11 mg/dL (9-20); BUN/CREATININE RATIO 26 (12-20 (CALC)); CARBON DIOXIDE 21 mmol/l (22-30); CHLORIDE 100 mmol/l (95-108); CREATININE 0.4 mg/dL (0.7-1.3); GFR > 60 ML/MIN (>=60 (CALC)); GFR FOR AFR.AMER. > 60 ML/MIN (>=60 (CALC)); POTASSIUM 3.7 mmol/l (3.5-5.1); SGOT/AST 11 u/l (17-59); SODIUM 132 mmol/l (137-146)
[2019-09-22 21:03] LABS: ALBUMIN 3.9 g/dL (3.2-5.0); BILIRUBIN, TOTAL 0.6 mg/dL (0.0-1.4); TOTAL PROTEIN 6.4 g/dL (6.3-8.2)
[2019-09-22 23:30] LABS: URINE BILIRUBIN - DIPSTICK NEGATIVE (NEGATIVE); URINE BLOOD DIPSTICK TRACE-INTACT (NEGATIVE); URINE COLOR YELLOW; URINE GLUCOSE - DIPSTICK >=1000 mg/dL (NEGATIVE); URINE KETONE >=80 mg/dL (NEGATIVE); URINE LEUK ESTERASE NEGATIVE (NEGATIVE); URINE NITRITE - DIPSTICK NEGATIVE (Negative); URINE PH 5.5 (4.5-8.0); URINE PROTEIN - DIPSTICK NEGATIVE (NEG-TRACE); URINE UROBILINOGEN - DIPSTICK 0.2 E.U./dL (0.2)
[2019-09-23] VITALS (13 sets, daily range): BP systolic 113–156; BP diastolic 71–89
[2019-09-24 00:10] VITALS: BP 140/82
[2019-09-24 03:40] VITALS: BP 143/76
[2019-09-24 05:11] LABS: HEMOGLOBIN 11.8 g/dl (14.0-18.0); IMMATURE GRANULOCYTES 0.4 % (0.0-5.0); MEAN CORPUSCULAR HGB CONC 31.1 g/dL CAL (32.0-36.0); NEUT# 7.83 thou/uL (1.82-7.42); RED BLOOD COUNT 4.37 mill/uL (4.70-6.10); RED CELL DISTRI WIDTH 15.3 % (11.5-15.5)
[2019-09-24 05:26] LABS: ANION GAP 11 (6-22 (CALC)); BUN 7 mg/dL (9-20); BUN/CREATININE RATIO 20 (12-20 (CALC)); CARBON DIOXIDE 24 mmol/l (22-30); CHLORIDE 101 mmol/l (95-108); CREATININE 0.4 mg/dL (0.7-1.3); GFR > 60 ML/MIN (>=60 (CALC)); GFR FOR AFR.AMER. > 60 ML/MIN (>=60 (CALC)); POTASSIUM 3.6 mmol/l (3.5-5.1); SODIUM 132 mmol/l (137-146)
[2019-09-24 07:58] VITALS: BP 138/82
[2019-09-24 10:45] VITALS: BP 149/99
[2019-09-24 15:00] VITALS: BP 129/74
[2019-09-24 18:40] VITALS: BP 138/83
[2019-09-25 04:00] VITALS: BP 138/74
[2019-09-25 05:54] LABS: HEMOGLOBIN 11.6 g/dl (14.0-18.0); MEAN CELL VOLUME 86.4 fL CALC (80.0-100.0); MEAN CORPUSCULAR HGB 27.1 pG CALC (26.0-32.0); MEAN CORPUSCULAR HGB CONC 31.4 g/dL CAL (32.0-36.0); RED BLOOD COUNT 4.28 mill/uL (4.70-6.10); RED CELL DISTRI WIDTH 14.9 % (11.5-15.5)
[2019-09-25 06:12] LABS: ANION GAP 10 (6-22 (CALC)); BUN 4 mg/dL (9-20); BUN/CREATININE RATIO 12 (12-20 (CALC)); CARBON DIOXIDE 26 mmol/l (22-30); CHLORIDE 101 mmol/l (95-108); CREATININE 0.4 mg/dL (0.7-1.3); GFR > 60 ML/MIN (>=60 (CALC)); GFR FOR AFR.AMER. > 60 ML/MIN (>=60 (CALC)); POTASSIUM 3.5 mmol/l (3.5-5.1); SODIUM 133 mmol/l (137-146)
[2019-09-25 08:00] VITALS: BP 145/79
[2019-09-25 08:46] VITALS: BP 145/79
[2019-09-25] MEDS ORDERED: DOXYCYCL HYC100 MG PO (09:55)
[2019-09-25] MEDS ORDERED: AMOX/K CLAV875 M1 PO (09:59)
[2019-10-02] MEDS ORDERED: PERCOCET 10/31 COMBO PO (08:56)
[2019-10-02] MEDS ORDERED: NEURONTIN600 MG PO (08:57)
[2019-10-30] MEDS ORDERED: PERCOCET 10/31 COMBO PO (08:29)
[2019-11-27] MEDS ORDERED: PERCOCET 10/31 COMBO PO (08:24)
== END 2019-09-25 12:20 | disposition home or self-care (01) | DRG 717 ==
LOC: ED 20:02 → ED-I 09-23 00:53 → ED 09-23 01:10 → MS2 09-23 01:11
PROVIDERS: Family Medicine; Nurse Practitioner; Urology; ADMIT Internal Medicine; ATTEND Internal Medicine
PROC: 0V950ZZ Drainage of Scrotum, Open Approach (ICD-10-PCS; principal; 2019-09-23)
DX: N49.2 Inflammatory disorders of scrotum (principal); Z68.42 Body mass index [BMI] 45.0-49.9, adult; B95.1 Streptococcus, group B, as the cause of diseases classified elsewhere; I10 Essential (primary) hypertension; E11.40 Type 2 diabetes mellitus with diabetic neuropathy, unspecified; E11.65 Type 2 diabetes mellitus with hyperglycemia; E66.01 Morbid (severe) obesity due to excess calories; F41.9 Anxiety disorder, unspecified; F32.9 Major depressive disorder, single episode, unspecified; D64.9 Anemia, unspecified; M54.30 Sciatica, unspecified side; E78.5 Hyperlipidemia, unspecified; K21.9 Gastro-esophageal reflux disease without esophagitis; F17.210 Nicotine dependence, cigarettes, uncomplicated; Z79.4 Long term (current) use of insulin; Z11.59 Encounter for screening for other viral diseases
CPT/HCPCS: J0131; J0878; J1650; J2710; J3370; Q9967

== ENCOUNTER 2019-12-20 11:56 | Emergency (ER) | payer MEDICARE, OTHER ==
[~2019-12-20] VITALS: Ht 185.4 cm; Wt 151.0 kg
[~2019-12-20 11:56] MED LIST changes: +AMOX/K CLAV875 M1 PO
[2019-12-20 13:37] LABS: URINE BILIRUBIN - DIPSTICK NEGATIVE (NEGATIVE); URINE BLOOD DIPSTICK NEGATIVE (NEGATIVE); URINE COLOR YELLOW; URINE GLUCOSE - DIPSTICK >=1000 mg/dL (NEGATIVE); URINE KETONE 15 mg/dL (NEGATIVE); URINE LEUK ESTERASE NEGATIVE (NEGATIVE); URINE NITRITE - DIPSTICK NEGATIVE (Negative); URINE PH 5.5 (4.5-8.0); URINE PROTEIN - DIPSTICK NEGATIVE (NEG-TRACE); URINE SPECIFIC GRAVITY <=1.005; URINE UROBILINOGEN - DIPSTICK 0.2 E.U./dL (0.2)
[2019-12-20 13:40] LABS: IMMATURE GRANULOCYTES 0.6 % (0.0-5.0); MEAN CELL VOLUME 83.4 fL CALC (80.0-100.0); MEAN CORPUSCULAR HGB 27.8 pG CALC (26.0-32.0); MEAN CORPUSCULAR HGB CONC 33.4 g/dL CAL (32.0-36.0); NEUT# 10.92 thou/uL (1.82-7.42); RED BLOOD COUNT 5.53 mill/uL (4.70-6.10); RED CELL DISTRI WIDTH 14.2 % (11.5-15.5)
[2019-12-20 13:45] LABS: HEMATOCRIT 46.1 % (39.0-50.0); HEMOGLOBIN 15.4 g/dl (14.0-18.0)
[2019-12-20 13:57] LABS: ALBUMIN 4.6 g/dL (3.2-5.0); ALKALINE PHOSPHATASE 145 u/l (38-126); ANION GAP 17 (6-22 (CALC)); BILIRUBIN, TOTAL 0.6 mg/dL (0.0-1.4); BUN 12 mg/dL (9-20); BUN/CREATININE RATIO 22 (12-20 (CALC)); CARBON DIOXIDE 23 mmol/l (22-30); CHLORIDE 96 mmol/l (95-108); CREATININE 0.5 mg/dL (0.7-1.3); GFR > 60 ML/MIN (>=60 (CALC)); GFR FOR AFR.AMER. > 60 ML/MIN (>=60 (CALC)); LIPASE 120 u/l (23-300); SGOT/AST 15 u/l (17-59); SODIUM 132 mmol/l (137-146); TOTAL PROTEIN 7.4 g/dL (6.3-8.2)
[2019-12-20 13:58] LABS: POTASSIUM 4.4 mmol/l (3.5-5.1)
[2019-12-20] MEDS ORDERED: MARIJUANA (14:46)
[2019-12-20] MEDS ORDERED: VISTARIL 50MG C50 M1 PO (16:47)
[2019-12-20 16:53] VITALS: BP 109/72
[2019-12-25] MEDS ORDERED: PERCOCET 10/31 COMBO PO (07:31)
[2019-12-25] MEDS ORDERED: NEURONTIN600 MG PO (07:32)
== END 2019-12-20 16:59 | disposition home or self-care (01) ==
LOC: ED 11:56
PROVIDERS: Family Medicine
DX: R10.12 Left upper quadrant pain (principal); R10.13 Epigastric pain; G47.00 Insomnia, unspecified; E11.9 Type 2 diabetes mellitus without complications; I10 Essential (primary) hypertension; F41.9 Anxiety disorder, unspecified; F32.9 Major depressive disorder, single episode, unspecified; E66.01 Morbid (severe) obesity due to excess calories; F17.200 Nicotine dependence, unspecified, uncomplicated
CPT/HCPCS: Q9967

== ENCOUNTER 2019-12-26 19:04 | Emergency (ER) | payer MEDICARE, OTHER ==
[~2019-12-26] VITALS: Ht 185.4 cm; Wt 149.0 kg
[~2019-12-26 19:04] MED LIST changes: +MARIJUANA; +VISTARIL 50MG C50 M1 PO
[2019-12-26 20:31] LABS: URINE BILIRUBIN - DIPSTICK NEGATIVE (NEGATIVE); URINE BLOOD DIPSTICK NEGATIVE (NEGATIVE); URINE COLOR YELLOW; URINE GLUCOSE - DIPSTICK >=1000 mg/dL (NEGATIVE); URINE KETONE >=80 mg/dL (NEGATIVE); URINE LEUK ESTERASE NEGATIVE (NEGATIVE); URINE NITRITE - DIPSTICK NEGATIVE (Negative); URINE PH 5.5 (4.5-8.0); URINE PROTEIN - DIPSTICK NEGATIVE (NEG-TRACE); URINE UROBILINOGEN - DIPSTICK 0.2 E.U./dL (0.2)
[2019-12-26 20:31] LABS: HEMOGLOBIN 15.4 g/dl (14.0-18.0); IMMATURE GRANULOCYTES 0.2 % (0.0-5.0); MEAN CELL VOLUME 84.5 fL CALC (80.0-100.0); MEAN CORPUSCULAR HGB 27.7 pG CALC (26.0-32.0); MEAN CORPUSCULAR HGB CONC 32.8 g/dL CAL (32.0-36.0); NEUT# 9.61 thou/uL (1.82-7.42); RED BLOOD COUNT 5.56 mill/uL (4.70-6.10); RED CELL DISTRI WIDTH 14.6 % (11.5-15.5)
[2019-12-26 20:41] LABS: ALBUMIN 4.1 g/dL (3.2-5.0); ALKALINE PHOSPHATASE 100 u/l (38-126); AMYLASE 58 u/l (30-110); ANION GAP 16 (6-22 (CALC)); BILIRUBIN, TOTAL 0.6 mg/dL (0.0-1.4); BUN 8 mg/dL (9-20); BUN/CREATININE RATIO 20 (12-20 (CALC)); CARBON DIOXIDE 20 mmol/l (22-30); CHLORIDE 103 mmol/l (95-108); CREATININE 0.4 mg/dL (0.7-1.3); GFR > 60 ML/MIN (>=60 (CALC)); GFR FOR AFR.AMER. > 60 ML/MIN (>=60 (CALC)); LIPASE 50 u/l (23-300); SGOT/AST 22 u/l (17-59); SODIUM 135 mmol/l (137-146); TOTAL PROTEIN 7.2 g/dL (6.3-8.2)
[2019-12-26] MEDS ORDERED: PHENERGAN25 MG RE (23:48)
[2019-12-26] MEDS ORDERED: DICYCLOMINE20 MG PO (23:48)
[2019-12-26 23:56] VITALS: BP 131/66
== END 2019-12-27 00:12 | disposition home or self-care (01) ==
LOC: ED 19:04
PROVIDERS: Family Medicine
DX: R10.12 Left upper quadrant pain (principal); E11.9 Type 2 diabetes mellitus without complications; I10 Essential (primary) hypertension; F41.9 Anxiety disorder, unspecified; F32.9 Major depressive disorder, single episode, unspecified; E66.01 Morbid (severe) obesity due to excess calories; F17.200 Nicotine dependence, unspecified, uncomplicated; Z79.4 Long term (current) use of insulin
CPT/HCPCS: Q9967; S0164

== ENCOUNTER 2020-06-03 09:42 | Observation (INO) | payer MEDICARE, OTHER ==
[~2020-06-03] VITALS: Ht 185.4 cm; Wt 136.4 kg
[~2020-06-03 09:42] MED LIST changes: +DICYCLOMINE20 MG PO; +PHENERGAN25 MG RE
--- NOTE | 2020-06-03 10:15 | NUR ---
AMBULATED TO ROOM WITH STEADY GAIT, ACCOMPANIED BY
--- NOTE | 2020-06-03 11:06 | NUR ---
EDP AT BEDSIDE TO EXAMINE PT
--- NOTE | 2020-06-03 11:20 | NUR ---
PT MOVED TO ROOM # 12 FOR HIGHER LEVEL OF CARE. REPORT GIVEN TO LORI VAN. CARE RELINQUISHED AT THIS TIME
--- NOTE | 2020-06-03 12:00 | NUR ---
PT RESTING IN BED. NO DISTRESS C/O PAIN TO LEFT AXILLA.
[2020-06-03 12:34] LABS: IMMATURE GRANULOCYTES 0.5 % (0.0-5.0); MEAN CELL VOLUME 86.6 fL CALC (80.0-100.0); MEAN CORPUSCULAR HGB 27.1 pG CALC (26.0-32.0); MEAN CORPUSCULAR HGB CONC 31.3 g/dL CAL (32.0-36.0); NEUT# 11.96 thou/uL (1.82-7.42); RED BLOOD COUNT 5.54 mill/uL (4.70-6.10); RED CELL DISTRI WIDTH 13.7 % (11.5-15.5)
[2020-06-03 12:49] LABS: ALBUMIN 4.1 g/dL (3.2-5.0); ALKALINE PHOSPHATASE 97 u/l (38-126); ANION GAP 15 (6-22 (CALC)); BILIRUBIN, TOTAL 0.8 mg/dL (0.0-1.4); BUN 10 mg/dL (9-20); BUN/CREATININE RATIO 27 (12-20 (CALC)); CARBON DIOXIDE 20 mmol/l (22-30); CHLORIDE 105 mmol/l (95-108); CREATININE 0.4 mg/dL (0.7-1.3); GFR > 60 ML/MIN (>=60 (CALC)); GFR FOR AFR.AMER. > 60 ML/MIN (>=60 (CALC)); POTASSIUM 4.5 mmol/l (3.5-5.1); SGOT/AST 17 u/l (17-59); SODIUM 135 mmol/l (137-146); TOTAL PROTEIN 6.9 g/dL (6.3-8.2)
--- NOTE | 2020-06-03 15:05 | NUR ---
PHYSICIAN NOTIFIED THAT PATIENT REPORTS THAT ORHINE "TOOK THE EDGE OFF THE PAIN, BUT I'M STILL HURTING."
--- NOTE | 2020-06-03 15:56 | NUR ---
PATIENT REPORTS THAT PAIN IN ARM IS IMPROOVED HE IS ABLE TO MOVE ARM WITH LESS PAIN NOW.
--- NOTE | 2020-06-03 16:10 | NUR ---
REPORT GIVEN TO LORI MACEDO PATIENT AGREES WITH PLAN FOR ADMISSION. ACCU CHECK 200
[2020-06-03 17:00] VITALS: BP 125/84
--- NOTE | 2020-06-03 17:30 | NUR ---
PT ARRIVES TO ROOM 278 VIA WHEELCHAIR FROM ER ACCOMPANIED BY LIANA SANDOVAL. PT IS ALERT, ORIENTED X 3, AMBULATORY. LEFT AXILLA WITH LARGE ABSCESS NOTED. PT PROVIDED PAIN MED AVAILABLE, UPDATED ON WHEN NEXT IS AVAILABLE.
[2020-06-03 19:00] VITALS: BP 119/72
--- NOTE | 2020-06-03 20:45 | NUR ---
PT RESTING IN BED. C/O PAIN REPORTED TO BACK AND LEFT WRIST. ADMINSTERED IV MORPHINE PRESCRIBED. BREATHING EVEN AND UNLABORED. REDNESS NOTED TO L AXILLA AND TO SURROUNDING TISSUE. PT VERBALIZED THAT ABCESS SITE IS LEAKING. PROVIDED PT WITH SOME 4 [address] UNDER AFFECTED ARM. WILL CONTINUE TO MONITOR.
--- NOTE | 2020-06-04 00:23 | NUR ---
PT RESTING QUIETLY IN BED WITH EYES CLOSED. NO COMPLAINTS VOICED. CALL LIGHT WITHIN REACH. BED IN LOWEST POSITION. WILL MONITOR
[2020-06-04 04:07] VITALS: BP 119/60
--- NOTE | 2020-06-04 04:20 | NUR ---
PT IN BED WITH EYES CLOSED. PT HAS REQUESTED PAIN MEDICATIONS Q3HRS SINCE BEGINNING OF SHIFT. PER PT MEDICATION IS EFFECTIVE FOR A SHORT PERIOD. PT REPORTS PAIN IS HIS BACK AND LEFT WRIST. BED IN LOW POSITION, CALL DENNISON WITHIN REACH. WILL MONITOR
[2020-06-04 05:43] LABS: HEMATOCRIT 44.7 % (39.0-50.0); MEAN CELL VOLUME 86.8 fL CALC (80.0-100.0); MEAN CORPUSCULAR HGB 27.2 pG CALC (26.0-32.0); MEAN CORPUSCULAR HGB CONC 31.3 g/dL CAL (32.0-36.0); RED BLOOD COUNT 5.15 mill/uL (4.70-6.10); RED CELL DISTRI WIDTH 13.7 % (11.5-15.5)
[2020-06-04 06:01] LABS: ANION GAP 12 (6-22 (CALC)); BUN 10 mg/dL (9-20); BUN/CREATININE RATIO 27 (12-20 (CALC)); CARBON DIOXIDE 23 mmol/l (22-30); CHLORIDE 103 mmol/l (95-108); CREATININE 0.4 mg/dL (0.7-1.3); GFR > 60 ML/MIN (>=60 (CALC)); GFR FOR AFR.AMER. > 60 ML/MIN (>=60 (CALC)); MAGNESIUM 1.7 mg/dL (1.6-2.3); POTASSIUM 3.8 mmol/l (3.5-5.1); SODIUM 134 mmol/l (137-146)
[2020-06-04 07:05] VITALS: BP 120/87
--- NOTE | 2020-06-04 07:05 | NUR ---
PATIENT SITTING UP IN BED AT THIS TIME. PATIENT GIVEN 2 UNITS OF HUMALOG FOR ACCU CHECK OF 164. PATIENT DENEIS ANY PAIN AT THIS TIME. PATIENT ALERT AND ORIENTED X 3. PATIENT EXHIBIT A ABCESS IN LEFT AXILLARY WITH SCANT AMOUNT OF SEROUS DRAINAGE NOTED. SIDERAILS ARE UP X 2 CALL LIGHT AND PERSONAL ITEMS WITHIN REACH.
--- NOTE | 2020-06-04 08:51 | NUR ---
S: ODALYS CHAVEZ is a 35 M who presents with cellulitis. He has a history of hypertension, type 2 diabetes, tobacco use, hiatal hernia, chronic sciatica, gastroesphogeal reflux, anixety, depression, and cystic acne. All medications in patient's chart were reviewed. O: VS: BP 120/87 mmHg, P 66 bpm, RR 20 bpm,T 97.9 F W 136.36 kg, 73 in, Scr= 0.4 mg/dl,CrCl= 250 ml/min A: Blood culture is pending. Wound culture is pending. P: Patient is on ceftriaxone 1g IV Q24H. Vancomycin ordered for pharmacy to dose. Start Vancomycin 1,500mg IV Q8H. Vancomycin trough is drawn before the 4th dose on 06/04/20 @13:30. Vancomycin goal trough is between 10-15 mcg/ml. Pharmacy will follow and or advise on antibiotics use as needed.
[2020-06-04 09:13] VITALS: BP 120/87
--- NOTE | 2020-06-04 12:05 | NUR ---
PATIENT SITTING UP AT BEDSIDE EATING LUNCH AT THIS TIME. PATIENT DENIES ALL NEEDS CALL LIGHT WITHIN REACH.
[2020-06-04] MEDS ORDERED: DOXYCYCL HYC100 MG PO (13:00)
[2020-06-04] MEDS ORDERED: AMOX/K CLAV875 M1 PO (13:00)
--- NOTE | 2020-06-04 13:54 | NUR ---
PATIENT D/C AT THIS TIME PATIENT VERBALIZES UNDERSTANDING OF D/C INSTRUCTIONS PATIENT LEFT WITH AMULATING WITH STAFF.
--- NOTE | 2020-06-04 13:55 | NUR ---
Discharge instructions given. Patient verbalizes understanding of same. Discharged in stable condition via Ambulatory to Home with spouse. All belongings sent with pt. PATIENT PULLED OWN IV OUT TIP INTACT NO SIGNS OF INJURY TO TISSUE.
[2020-06-24] MEDS ORDERED: METFORMIN500 M2 PO (07:53)
[2020-06-24] MEDS ORDERED: PERCOCET 10/31 COMBO PO (08:17)
[2020-06-24] MEDS ORDERED: NEURONTIN600 MG PO (08:18)
[2020-10-24] MEDS ORDERED: PERCOCET 10/31 COMBO PO (11:03)
== END 2020-06-04 13:55 | disposition home or self-care (01) ==
LOC: ED 09:42 → ED-I 13:35 → ED 13:52 → MS2 13:53
PROVIDERS: Emergency Medicine; Nurse Practitioner; ADMIT Internal Medicine; ATTEND Internal Medicine
PROC: 3E02340 Introduction of Influenza Vaccine into Muscle, Percutaneous Approach (ICD-10-PCS; principal; 2020-06-04)
PROC: 3E0234Z Introduction of Serum, Toxoid and Vaccine into Muscle, Percutaneous Approach (ICD-10-PCS; 2020-06-04)
DX: L02.412 Cutaneous abscess of left axilla (principal); L03.114 Cellulitis of left upper limb; L73.2 Hidradenitis suppurativa; I10 Essential (primary) hypertension; E11.65 Type 2 diabetes mellitus with hyperglycemia; K21.9 Gastro-esophageal reflux disease without esophagitis; F41.9 Anxiety disorder, unspecified; G89.4 Chronic pain syndrome; F32.9 Major depressive disorder, single episode, unspecified; E66.01 Morbid (severe) obesity due to excess calories; F17.200 Nicotine dependence, unspecified, uncomplicated; Z79.4 Long term (current) use of insulin; Z23 Encounter for immunization; Z20.822 Contact with and (suspected) exposure to COVID-19
CPT/HCPCS: G0378; J1650; J3370

== ENCOUNTER 2020-07-16 18:56 | Emergency (ER) | payer MEDICARE, OTHER ==
[~2020-07-16] VITALS: Ht 185.4 cm; Wt 136.0 kg
[~2020-07-16 18:56] MED LIST changes: +METFORMIN500 M2 PO
[2020-07-16] MEDS ORDERED: XANAX1 MG PO (20:14)
[2020-07-16 20:16] VITALS: BP 147/83
[2020-10-24] MEDS ORDERED: PERCOCET 10/31 COMBO PO (11:03)
== END 2020-07-16 20:18 | disposition home or self-care (01) ==
LOC: ED 18:56
DX: S63.502A Unspecified sprain of left wrist, initial encounter (principal); E11.9 Type 2 diabetes mellitus without complications; I10 Essential (primary) hypertension; F41.9 Anxiety disorder, unspecified; F32.9 Major depressive disorder, single episode, unspecified; E66.01 Morbid (severe) obesity due to excess calories; F17.200 Nicotine dependence, unspecified, uncomplicated; W19.XXXA Unspecified fall, initial encounter; Y92.009 Unspecified place in unspecified non-institutional (private) residence as the place of occurrence of the external cause; Z79.4 Long term (current) use of insulin

== ENCOUNTER 2020-07-18 09:33 | Emergency (ER) | payer MEDICARE, OTHER ==
[~2020-07-18] VITALS: Ht 188 cm; Wt 136.3 kg
[~2020-07-18 09:33] MED LIST changes: +XANAX1 MG PO
[2020-07-18] MEDS ORDERED: DOXYCYCLINE100 MG PO (10:07)
[2020-07-18 10:26] VITALS: BP 157/82
[2020-10-24] MEDS ORDERED: PERCOCET 10/31 COMBO PO (11:03)
== END 2020-07-18 10:26 | disposition home or self-care (01) ==
LOC: ED 09:33
DX: S60.212D Contusion of left wrist, subsequent encounter (principal); I10 Essential (primary) hypertension; E11.9 Type 2 diabetes mellitus without complications; F41.9 Anxiety disorder, unspecified; F32.9 Major depressive disorder, single episode, unspecified; E66.9 Obesity, unspecified; F17.200 Nicotine dependence, unspecified, uncomplicated; Z79.4 Long term (current) use of insulin; W19.XXXD Unspecified fall, subsequent encounter; Z20.822 Contact with and (suspected) exposure to COVID-19; Z01.818 Encounter for other preprocedural examination; Z11.52 Encounter for screening for COVID-19

== ENCOUNTER 2020-07-19 11:26 | Emergency (ER) | payer MEDICARE, OTHER ==
[~2020-07-19] VITALS: Ht 188 cm; Wt 136.0 kg
[~2020-07-19 11:26] MED LIST changes: +DOXYCYCLINE100 MG PO
[2020-07-19 12:48] VITALS: BP 130/80
[2020-10-24] MEDS ORDERED: PERCOCET 10/31 COMBO PO (11:03)
== END 2020-07-19 12:56 | disposition home or self-care (01) ==
LOC: ED 11:26
DX: G89.29 Other chronic pain (principal); M25.532 Pain in left wrist; E11.9 Type 2 diabetes mellitus without complications; I10 Essential (primary) hypertension; M54.30 Sciatica, unspecified side; F41.9 Anxiety disorder, unspecified; F32.9 Major depressive disorder, single episode, unspecified; E66.01 Morbid (severe) obesity due to excess calories; K21.9 Gastro-esophageal reflux disease without esophagitis; J44.9 Chronic obstructive pulmonary disease, unspecified; F17.220 Nicotine dependence, chewing tobacco, uncomplicated; F17.210 Nicotine dependence, cigarettes, uncomplicated; Z87.11 Personal history of peptic ulcer disease; Z79.4 Long term (current) use of insulin

== ENCOUNTER 2020-07-20 16:21 | Emergency (ER) | payer MEDICARE, OTHER ==
[~2020-07-20] VITALS: Ht 188 cm; Wt 136.0 kg
[2020-07-20 16:32] VITALS: BP 167/98
[2020-10-24] MEDS ORDERED: PERCOCET 10/31 COMBO PO (11:03)
== END 2020-07-20 17:25 | disposition home or self-care (01) ==
LOC: ED 16:21
DX: M25.532 Pain in left wrist (principal); G89.29 Other chronic pain; E11.9 Type 2 diabetes mellitus without complications; I10 Essential (primary) hypertension; F41.9 Anxiety disorder, unspecified; F32.9 Major depressive disorder, single episode, unspecified; E66.01 Morbid (severe) obesity due to excess calories; M54.30 Sciatica, unspecified side; J44.9 Chronic obstructive pulmonary disease, unspecified; F17.200 Nicotine dependence, unspecified, uncomplicated; Z87.11 Personal history of peptic ulcer disease; Z79.4 Long term (current) use of insulin

== ENCOUNTER 2020-07-23 06:25 | Day surgery (SDC) | payer MEDICARE, MEDICAID ==
[~2020-07-23] VITALS: Ht 188 cm; Wt 136.1 kg
[2020-07-23] MEDS ORDERED: PERCOCET 10/31 COMBO PO (08:25)
[2020-07-23 08:57] VITALS: BP 114/69
[2020-10-24] MEDS ORDERED: PERCOCET 10/31 COMBO PO (11:03)
== END 2020-07-23 09:33 | disposition home or self-care (01) ==
LOC: ORM 06:25
PROVIDERS: ATTEND Anesthesiology Pain Medicine
DX: M54.5 Low back pain (principal); M47.816 Spondylosis without myelopathy or radiculopathy, lumbar region

== ENCOUNTER 2020-09-28 12:54 | Emergency (ER) | payer MEDICARE, OTHER ==
[2020-09-28 14:13] LABS: URINE BILIRUBIN - DIPSTICK NEGATIVE (NEGATIVE); URINE BLOOD DIPSTICK NEGATIVE (NEGATIVE); URINE COLOR YELLOW; URINE GLUCOSE - DIPSTICK NEGATIVE (NEGATIVE); URINE KETONE NEGATIVE (NEGATIVE); URINE LEUK ESTERASE NEGATIVE (NEGATIVE); URINE NITRITE - DIPSTICK NEGATIVE (Negative); URINE PROTEIN - DIPSTICK NEGATIVE (NEG-TRACE); URINE SPECIFIC GRAVITY >=1.030; URINE UROBILINOGEN - DIPSTICK 0.2 E.U./dL (0.2)
[2020-09-28 14:19] LABS: HEMATOCRIT 45.5 % (39.0-50.0); HEMOGLOBIN 14.6 g/dl (14.0-18.0); IMMATURE GRANULOCYTES 0.4 % (0.0-5.0); MEAN CORPUSCULAR HGB 27.6 pG CALC (26.0-32.0); MEAN CORPUSCULAR HGB CONC 32.1 g/dL CAL (32.0-36.0); NEUT# 9.35 thou/uL (1.82-7.42); RED BLOOD COUNT 5.29 mill/uL (4.70-6.10); RED CELL DISTRI WIDTH 14.1 % (11.5-15.5)
[2020-09-28 14:32] LABS: ALBUMIN 4.2 g/dL (3.2-5.0); ALKALINE PHOSPHATASE 69 u/l (38-126); ANION GAP 13 (6-22 (CALC)); BUN 12 mg/dL (9-20); BUN/CREATININE RATIO 23 (12-20 (CALC)); CARBON DIOXIDE 24 mmol/l (22-30); CHLORIDE 107 mmol/l (95-108); CREATININE 0.5 mg/dL (0.7-1.3); GFR > 60 ML/MIN (>=60 (CALC)); GFR FOR AFR.AMER. > 60 ML/MIN (>=60 (CALC)); LIPASE 61 u/l (23-300); POTASSIUM 4.1 mmol/l (3.5-5.1); SGOT/AST 18 u/l (17-59); SODIUM 140 mmol/l (137-146); TOTAL PROTEIN 7.1 g/dL (6.3-8.2)
[2020-09-28 14:33] LABS: BILIRUBIN, TOTAL 0.3 mg/dL (0.0-1.4)
[2020-09-28 18:00] VITALS: BP 146/70
[2020-10-24] MEDS ORDERED: PERCOCET 10/31 COMBO PO (11:03)
[2020-11-25] MEDS ORDERED: PERCOCET 10/31 COMBO PO (12:58)
[2020-11-25] MEDS ORDERED: GABAPENTIN600 MG PO (13:00)
[2020-12-30] MEDS ORDERED: CARAFATE PO (12:06)
[2020-12-30] MEDS ORDERED: DEXILANT30 MG PO (12:06)
[2020-12-30] MEDS ORDERED: OXYCODONE10 M1 PO (12:26)
[2021-02-03] MEDS ORDERED: DOXYCYCLINE100 MG PO (07:37)
[2021-02-03] MEDS ORDERED: OXYCODONE10 M1 PO (07:57)
== END 2020-09-28 18:00 | disposition home or self-care (01) ==
LOC: ED 12:54
PROVIDERS: Family Medicine
DX: R10.12 Left upper quadrant pain (principal); E11.9 Type 2 diabetes mellitus without complications; I10 Essential (primary) hypertension; F41.9 Anxiety disorder, unspecified; F32.9 Major depressive disorder, single episode, unspecified; E66.01 Morbid (severe) obesity due to excess calories; J44.9 Chronic obstructive pulmonary disease, unspecified; F17.220 Nicotine dependence, chewing tobacco, uncomplicated; Z87.11 Personal history of peptic ulcer disease; Z79.4 Long term (current) use of insulin
CPT/HCPCS: Q9967

== ENCOUNTER 2020-10-16 16:45 | Observation (INO) | payer MEDICARE, MEDICAID ==
[~2020-10-16] VITALS: Ht 185.4 cm; Wt 76.0 kg
--- NOTE | 2020-10-16 16:50 | NUR ---
TO ROOM FOR TRIAGE
--- NOTE | 2020-10-16 18:07 | NUR ---
IV MEDS GIVEN ORDERED. PT TO BE ADMITTED FOR SURGERY PER MD. STABLE ON MONITOR. CALL LIGHT WITHIN REACH.
[2020-10-16 18:22] LABS: HEMATOCRIT 47.5 % (39.0-50.0); HEMOGLOBIN 15.5 g/dl (14.0-18.0); IMMATURE GRANULOCYTES 0.1 % (0.0-5.0); MEAN CELL VOLUME 84.5 fL CALC (80.0-100.0); MEAN CORPUSCULAR HGB 27.6 pG CALC (26.0-32.0); MEAN CORPUSCULAR HGB CONC 32.6 g/dL CAL (32.0-36.0); NEUT# 8.07 thou/uL (1.82-7.42); RED BLOOD COUNT 5.62 mill/uL (4.70-6.10)
--- NOTE | 2020-10-16 18:33 | NUR ---
SWAB COMPLETED. IV ABX INFUSING WITHOUT DIFFICULTY.
[2020-10-16 18:37] LABS: ALBUMIN 4.4 g/dL (3.2-5.0); ALKALINE PHOSPHATASE 73 u/l (38-126); AMYLASE 61 u/l (30-110); ANION GAP 14 (6-22 (CALC)); BUN 10 mg/dL (9-20); BUN/CREATININE RATIO 19 (12-20 (CALC)); CARBON DIOXIDE 23 mmol/l (22-30); CHLORIDE 106 mmol/l (95-108); CREATININE 0.5 mg/dL (0.7-1.3); GFR > 60 ML/MIN (>=60 (CALC)); GFR FOR AFR.AMER. > 60 ML/MIN (>=60 (CALC)); LIPASE 57 u/l (23-300); SGOT/AST 20 u/l (17-59); SODIUM 139 mmol/l (137-146); TOTAL PROTEIN 7.7 g/dL (6.3-8.2)
[2020-10-16 18:40] LABS: BILIRUBIN, TOTAL 0.5 mg/dL (0.0-1.4)
--- NOTE | 2020-10-16 19:45 | NUR ---
PT NOT IN ROOM ON ROUNDS
--- NOTE | 2020-10-16 21:25 | NUR ---
PT NAUSEOUS WITH SIP OF WATER AFTER TYLENOL. SMALL AMT EMESIS. MOSTLY MUCOUS AND BELCHING. DILAUDID GIVEN FOR PAIN. PT REPORTS THAT HE HAS NOT HAD ROUTINE PAIN MEDS DUE TO HAVING TO FIND NEW PCP.
--- NOTE | 2020-10-16 21:26 | NUR ---
FLOOR NURSE, TOSHIA, UNABLE TO TAKE REPORT AT THIS TIME. SAT TUTOR, SMITH, NOTIFIED.
--- NOTE | 2020-10-16 21:53 | NUR ---
FLOOR NURSE, TOSHIA, UNABLE TO TAKE REPORT AT THIS TIME. CHARGE NURSE, SALOME NOTIFIED.
--- NOTE | 2020-10-16 22:20 | NUR ---
RECEIVED REPORT FROM CARLOTA SANDOVAL.
--- NOTE | 2020-10-16 22:22 | NUR ---
REPORT GIVEN TO LORI POPE. PT STABLE FOR TRANSFER TO FLOOR. NO DISTRESS.
--- NOTE | 2020-10-16 22:30 | NUR ---
Admission Note Report Given to: TOSHIA Transported by: X Wheelchair Stretcher Transported with: X Nurse Transporter X Patent IV O2 Electrical Lineman Location: ICU X [facility] TRANSPORTED BY URIEL MTZCHECK SERVICES CLERK
[2020-10-16 22:38] VITALS: BP 160/98
--- NOTE | 2020-10-16 22:50 | NUR ---
RECEIVED PATIENT TO THE FLOOR AT 2234 IN STABLE CONDITION FROM THE ED VIA W/C AND ESCORTED BY SALES REPRESENTATIVE EDUCATION COURSES. IVF INFUSING. ALERT AND ORIENTED. C/O EPIGASTRIC/ABD PAIN 08/30. RECEIVED 2MG DILAUDED IV IN THE ED AROUND 2114. ADMISSION PAPERWORK AND ASSESSMENT COMPLETED. BED IN LOW POSITION. CALL LIGHT WITHIN REACH. FALL PRECAUTIONS MAINTAINED. PATIENT WAS ORIENTED TO ROOM AND CALL LIGHT SYSTEM. VERBALZIED UNDERSTANDING.
[2020-10-17] VITALS (9 sets, daily range): BP systolic 127–153; BP diastolic 78–99
--- NOTE | 2020-10-17 00:40 | NUR ---
PATIENT MEDICATED WITH 0.5 MG DILAUDID WITH SOME POSITIVE EFFECT. BED IN LOW POSITION. CALL LIGHT WITHIN REACH. PATIENT AWAKE AND PLAYING ON PHONE.
--- NOTE | 2020-10-17 04:33 | NUR ---
RESTING QUIETLY SEMI-FOWLERS. PAIN MEDICATION NOT DUE YET. PATIENT AWARE.
[2020-10-17 05:31] LABS: HEMATOCRIT 50.1 % (39.0-50.0); HEMOGLOBIN 15.1 g/dl (14.0-18.0); MEAN CELL VOLUME 91.4 fL CALC (80.0-100.0); MEAN CORPUSCULAR HGB 27.6 pG CALC (26.0-32.0); MEAN CORPUSCULAR HGB CONC 30.1 g/dL CAL (32.0-36.0); RED BLOOD COUNT 5.48 mill/uL (4.70-6.10); RED CELL DISTRI WIDTH 14.3 % (11.5-15.5)
[2020-10-17 07:23] LABS: BUN 12 mg/dL (9-20); BUN/CREATININE RATIO 19 (12-20 (CALC)); CHLORIDE 104 mmol/l (95-108); CREATININE 0.6 mg/dL (0.7-1.3); GFR > 60 ML/MIN (>=60 (CALC)); GFR FOR AFR.AMER. > 60 ML/MIN (>=60 (CALC)); MAGNESIUM 1.9 mg/dL (1.6-2.3); POTASSIUM 4.2 mmol/l (3.5-5.1); SODIUM 142 mmol/l (137-146)
[2020-10-17 07:26] LABS: ANION GAP 13 (6-22 (CALC)); CARBON DIOXIDE 29 mmol/l (22-30)
--- NOTE | 2020-10-17 07:49 | NUR ---
DR GARCIA AT BEDSIDE DISCUSSING POC
--- NOTE | 2020-10-17 08:26 | NUR ---
PT SITTING IN BED. A&O X3. NO DISTRESS NOTED. PT C/O OF PAIN 8/10 [place] IN DESCRITPION. ALSO C/O "ANXIETY". PT EDUCATED AND REINFORCED ON NPO STATUS HE IS REQUESTING ICE CHIPS. WHEEZING HEARD UPON AUSCULTATION ON UPPER LOBES UPON EXPIRATION, CLEAR THROUGHOUT. ACTIVE BOWEL SOUNDS X4 QUADRANTS. #20G RH WITH IVF INFUSING PER MAR ORDER. NO OTHER NEEDS AT THIS TIME. BILATERAL SCDS IN PLACE. ASSESSMENT COMPLETED. DISCUSSED POC. CALL LIGHT WITHIN REACH.
--- NOTE | 2020-10-17 09:37 | NUR ---
DR SHAVER AND Pankaj COTTON APRN AT BEDSIDE DISCUSSING POC
--- NOTE | 2020-10-17 12:55 | NUR ---
PT TAKEN VIA STRETCHER ACCOMPANIED BY OR STAFF IN STABLE CONDITION. JEWLERY PLACED IN DRAWER.
--- NOTE | 2020-10-17 20:00 | NUR ---
PATIENT IS ALERT AND ORIENTED X3. ABLE TO MAKE NEEDS KNOWN. RESPIRATIONS EVEN AND EASY ON RA. HR REG. C/O ABDOMINAL PAIN S/P CHOLECYSTECTOMY. 4 SMALL INCISIONS NOTED TO ABDOMEN. EDGES WELL APPROXIMATED THROUGHOUT. DERMABOND USED AND IN PLACE TO KEEP CLOSED. IVF INFUSING. PATIENT IS AWARE THAT PAIN MEDICATIONS WILL NOT BE AVAILABLE UNTIL AFTER 2300. VERBALIZED UNDERSTANDING. BED IN LOW POSITION. CALL LIGHT WITHIN REACH.
[2020-10-18] VITALS: BP 116/73
--- NOTE | 2020-10-18 01:00 | NUR ---
PATIENT RECEIVED DOSE OF DILAUDED WHEN IT BECAME AVAILABLE. CURRENTLY IN BED RESTING WITH EYES CLOSED. RESPIRATIONS EVEN AND UNLABORED. BED IN LOW POSITION. CALL LIGHT WITHIN REACH.
--- NOTE | 2020-10-18 04:32 | NUR ---
CURRENTLY RESTING WITH EYES CLOSED. NO ACUTE DISTRESS NOTED. BED IN LOW POSITION. CALL LIGHT WITHIN REACH. IVF INFUSING ORDERED.
[2020-10-18 04:50] VITALS: BP 129/80
[2020-10-18 05:30] LABS: ANION GAP 12 (6-22 (CALC)); BUN 9 mg/dL (9-20); BUN/CREATININE RATIO 16 (12-20 (CALC)); CARBON DIOXIDE 24 mmol/l (22-30); CHLORIDE 105 mmol/l (95-108); CREATININE 0.5 mg/dL (0.7-1.3); GFR > 60 ML/MIN (>=60 (CALC)); GFR FOR AFR.AMER. > 60 ML/MIN (>=60 (CALC)); HEMOGLOBIN 13.7 g/dl (14.0-18.0); MEAN CELL VOLUME 87.2 fL CALC (80.0-100.0); MEAN CORPUSCULAR HGB 28.4 pG CALC (26.0-32.0); MEAN CORPUSCULAR HGB CONC 32.5 g/dL CAL (32.0-36.0); RED BLOOD COUNT 4.83 mill/uL (4.70-6.10); SODIUM 137 mmol/l (137-146)
[2020-10-18 05:36] LABS: HEMATOCRIT 42.1 % (39.0-50.0)
--- NOTE | 2020-10-18 08:00 | NUR ---
PATIENT ALERT, VERBAL, ABLE TO MAKE NEEDS KNOWN. ABLE TO TOLERATE MEDS WELL WHOLE. FSBS ORDERED WITH SSO PRN--NO S/S OF GLYCEMIC REACTION NOTED. PIV SITE PATENT TO RIGHT HAND--FLUSHES WELL--SITE UNREMARKABLE--NS INFUSING @ 100ML/HR WITHOUT DIFFICULTY--TOLERATING FLUIDS WELL. SCDS IN PLACE FOR DVT PREVENTION. CONT OF BOWEL AND BLADDER--OUT OF BED TO [facility]--ENCOURGAED TO CALL FOR ASSIST WITH TRANSFERS IF NEEDED--USES [facility]AL AT [facility]. LS NOTED TO HAVE SOME EXPIRATORY WHEEZING TO BILATERAL UPPER LOBES AND DIMINSHED IN BILATERAL BASES. 4 INCISIONS NOTED TO ABDOMEN FROM PROCEDURE YESTERDAY--DERMABONDED--EDGES APPROX--WITHOUT ANY S/S OF INFECTION NOTED. COMPLAINS OF DISCOMFORT THIS AM--MEDICATED WITH PRN TYLENOL--NOT YET TIME FOR IV DILAUDID AT THIS TIME--POSITIVE EFFECT. PLANS TO DC HOME TODAY--[place] FINALIZATION OF DISCHRAGE ORDERS. WILL CONT TO MONITOR FOR ANY FURTHER CHANGES.
[2020-10-18] MEDS ORDERED: PERCOCET 10/31 COMBO PO (11:48)
--- NOTE | 2020-10-18 12:20 | NUR ---
Discharge instructions given. Patient verbalizes understanding of same. Discharged in good condition via Wheelchair to Home with family. All belongings sent with pt. Scripts called in to patient's preferred pharmacy.
[2020-10-24] MEDS ORDERED: PERCOCET 10/31 COMBO PO (11:03)
[2020-11-25] MEDS ORDERED: PERCOCET 10/31 COMBO PO (12:58)
[2020-11-25] MEDS ORDERED: GABAPENTIN600 MG PO (13:00)
[2020-12-30] MEDS ORDERED: CARAFATE PO (12:06)
[2020-12-30] MEDS ORDERED: DEXILANT30 MG PO (12:06)
[2020-12-30] MEDS ORDERED: OXYCODONE10 M1 PO (12:26)
[2021-02-03] MEDS ORDERED: DOXYCYCLINE100 MG PO (07:37)
[2021-02-03] MEDS ORDERED: OXYCODONE10 M1 PO (07:57)
== END 2020-10-18 12:20 | disposition home or self-care (01) ==
LOC: ED 16:45 → ED-I 17:50 → ED 18:11 → MS2 18:12
PROVIDERS: Nurse Practitioner; ADMIT Internal Medicine; ATTEND Internal Medicine
PROC: 0FT44ZZ Resection of Gallbladder, Percutaneous Endoscopic Approach (ICD-10-PCS; principal; 2020-10-17)
DX: K80.12 Calculus of gallbladder with acute and chronic cholecystitis without obstruction (principal); I10 Essential (primary) hypertension; E11.9 Type 2 diabetes mellitus without complications; J44.9 Chronic obstructive pulmonary disease, unspecified; G89.4 Chronic pain syndrome; F41.9 Anxiety disorder, unspecified; F32.9 Major depressive disorder, single episode, unspecified; K21.9 Gastro-esophageal reflux disease without esophagitis; E66.01 Morbid (severe) obesity due to excess calories; F17.200 Nicotine dependence, unspecified, uncomplicated; Z86.14 Personal history of Methicillin resistant Staphylococcus aureus infection; Z79.4 Long term (current) use of insulin; Z87.11 Personal history of peptic ulcer disease; Z68.42 Body mass index [BMI] 45.0-49.9, adult; Z20.822 Contact with and (suspected) exposure to COVID-19; R11.2 Nausea with vomiting, unspecified; R10.13 Epigastric pain; R13.10 Dysphagia, unspecified; R19.7 Diarrhea, unspecified
CPT/HCPCS: A9537; G0378; J0131; J1610; J1956; J2060; J2710; J2805; Q9967; S0164

== ENCOUNTER 2020-11-17 16:51 | Emergency (ER) | payer MEDICARE, MEDICAID ==
[~2020-11-17] VITALS: Ht 185.4 cm; Wt 168.0 kg
[2020-11-17 18:01] LABS: HEMATOCRIT 43.6 % (39.0-50.0); HEMOGLOBIN 13.9 g/dl (14.0-18.0); IMMATURE GRANULOCYTES 0.1 % (0.0-5.0); MEAN CELL VOLUME 86.9 fL CALC (80.0-100.0); MEAN CORPUSCULAR HGB 27.7 pG CALC (26.0-32.0); MEAN CORPUSCULAR HGB CONC 31.9 g/dL CAL (32.0-36.0); NEUT# 7.26 thou/uL (1.82-7.42); RED BLOOD COUNT 5.02 mill/uL (4.70-6.10); RED CELL DISTRI WIDTH 14.3 % (11.5-15.5)
[2020-11-17 18:02] LABS: URINE BILIRUBIN - DIPSTICK NEGATIVE (NEGATIVE); URINE BLOOD DIPSTICK NEGATIVE (NEGATIVE); URINE COLOR YELLOW; URINE GLUCOSE - DIPSTICK >=1000 mg/dL (NEGATIVE); URINE KETONE TRACE mg/dL (NEGATIVE); URINE LEUK ESTERASE NEGATIVE (NEGATIVE); URINE PROTEIN - DIPSTICK NEGATIVE (NEG-TRACE); URINE SPECIFIC GRAVITY 1.025; URINE UROBILINOGEN - DIPSTICK 0.2 E.U./dL (0.2)
[2020-11-17 18:08] LABS: URINE NITRITE - DIPSTICK NEGATIVE (Negative)
[2020-11-17 18:21] LABS: ALBUMIN 4.3 g/dL (3.2-5.0); ALKALINE PHOSPHATASE 81 u/l (38-126); AMYLASE 54 u/l (30-110); ANION GAP 10 (6-22 (CALC)); BILIRUBIN, TOTAL 0.4 mg/dL (0.0-1.4); BUN 10 mg/dL (9-20); BUN/CREATININE RATIO 20 (12-20 (CALC)); CARBON DIOXIDE 25 mmol/l (22-30); CHLORIDE 106 mmol/l (95-108); CREATININE 0.5 mg/dL (0.7-1.3); GFR > 60 ML/MIN (>=60 (CALC)); GFR FOR AFR.AMER. > 60 ML/MIN (>=60 (CALC)); POTASSIUM 4.3 mmol/l (3.5-5.1); SGOT/AST 15 u/l (17-59); SODIUM 137 mmol/l (137-146); TOTAL PROTEIN 7.2 g/dL (6.3-8.2)
[2020-11-17] MEDS ORDERED: GABAPENTIN600 MG PO (18:52)
[2020-11-17 20:58] VITALS: BP 140/85
== END 2020-11-17 20:45 | disposition home or self-care (01) ==
LOC: ED 16:51
DX: G89.4 Chronic pain syndrome (principal); I10 Essential (primary) hypertension; E11.9 Type 2 diabetes mellitus without complications; J44.9 Chronic obstructive pulmonary disease, unspecified; K21.9 Gastro-esophageal reflux disease without esophagitis; F41.9 Anxiety disorder, unspecified; F32.9 Major depressive disorder, single episode, unspecified; E66.01 Morbid (severe) obesity due to excess calories; F17.210 Nicotine dependence, cigarettes, uncomplicated; Z76.5 Malingerer [conscious simulation]; Z90.49 Acquired absence of other specified parts of digestive tract; Z79.4 Long term (current) use of insulin; Z87.11 Personal history of peptic ulcer disease
CPT/HCPCS: Q9967

== ENCOUNTER 2020-12-10 15:23 | Inpatient (IN) | payer MEDICARE, MEDICAID ==
[~2020-12-10] VITALS: Ht 185.4 cm; Wt 167.8 kg
[2020-12-10] VITALS: BP 128/75
[~2020-12-10 15:23] MED LIST changes: +GABAPENTIN600 MG PO
--- NOTE | 2020-12-10 16:21 | NUR ---
ADVISED PT OF NO BEDS AVAILABLE IN ER AND WILL PLACE BACK IN WAITING ROOM, ADVISED TO NOTIFIY STAFF OF ANY CHANGES
--- NOTE | 2020-12-10 17:30 | NUR ---
PT TO ROOM VIA WHEELCHAIR.
--- NOTE | 2020-12-10 18:15 | NUR ---
PT TO ED WITH COMPLAIN OF PAIN RELATED TO ABSCESS IN LEFT GROIN/BUTTOCK AREA. PT REPORTS HISTORY OF SIMILAR CONDITION AND WAS HOSPITALIZED AT THAT TIME. PT WITH FEVER AT THIS TIME. ED PROVIDER AWARE. PT STABLE WITH CALL LIGHT IN REACH. WILL CONTINUE TO MONITOR.
--- NOTE | 2020-12-10 18:53 | NUR ---
2 IV ATTEMPTS-UNSUCCESSFUL. PT TOLERATED WELL. LORI REID NOTIFIED AND WILL SEE PT.
--- NOTE | 2020-12-10 19:05 | NUR ---
PT LYING ON ED STRETCHER IN STABLE CONDITION. WILL CONTINUE TO MONITOR
[2020-12-10 20:39] LABS: HEMATOCRIT 43.5 % (39.0-50.0); HEMOGLOBIN 14.2 g/dl (14.0-18.0); IMMATURE GRANULOCYTES 0.1 % (0.0-5.0); MEAN CELL VOLUME 84.6 fL CALC (80.0-100.0); MEAN CORPUSCULAR HGB 27.6 pG CALC (26.0-32.0); MEAN CORPUSCULAR HGB CONC 32.6 g/dL CAL (32.0-36.0); NEUT# 12.89 thou/uL (1.82-7.42); RED BLOOD COUNT 5.14 mill/uL (4.70-6.10)
--- NOTE | 2020-12-10 20:40 | NUR ---
NOTIFIED OF PT'S PAIN AND REQUESTING PAIN MEDICATION
[2020-12-10 20:54] LABS: ALBUMIN 4.3 g/dL (3.2-5.0); ALKALINE PHOSPHATASE 93 u/l (38-126); BUN 10 mg/dL (9-20); BUN/CREATININE RATIO 20 (12-20 (CALC)); CARBON DIOXIDE 25 mmol/l (22-30); CHLORIDE 104 mmol/l (95-108); CREATININE 0.5 mg/dL (0.7-1.3); GFR > 60 ML/MIN (>=60 (CALC)); GFR FOR AFR.AMER. > 60 ML/MIN (>=60 (CALC)); SGOT/AST 14 u/l (17-59); SODIUM 139 mmol/l (137-146); TOTAL PROTEIN 7.7 g/dL (6.3-8.2)
[2020-12-10 20:56] LABS: ANION GAP 13 (6-22 (CALC)); BILIRUBIN, TOTAL 0.7 mg/dL (0.0-1.4); POTASSIUM 3.2 mmol/l (3.5-5.1)
--- NOTE | 2020-12-10 21:05 | NUR ---
PT TO CT VIA STRETCHER IN STABLE CONDITION.
--- NOTE | 2020-12-10 22:03 | NUR ---
[facility] CALLED TO [facility]. AWAITING PT'S COVID RESULTS, IF NEGATIVE, PT TO GO TO ROOM #279. PT AWARE OF ADMISSION.
--- NOTE | 2020-12-10 23:15 | NUR ---
TO ROOM VIA STRETCHER WITH RADU ARMSTRONG LPN. MARIA EUGENIA INFUSING. BELONGINGS WITH PT IN BAGS.
--- NOTE | 2020-12-10 23:34 | NUR ---
PT RECEIVED FROM ED TO ROOM 279. ARRIVES VIA STRETCHER ACCOMPANIED BY SECURITY AND COMPLIANCE PROJECT MANAGER. PT AMBULATORY TO BED. GAIT UNSTEADY. PT DENIES PAIN AT THIS TIME. ORIENTED TO UNIT, ROOM, CALL DENNISON, LIGHTS, TV. ICE CHIPS PROVIDED PT IS NPO. CALL DENNISON WITHIN REACH. AGREES TO CALL PRN.
--- NOTE | 2020-12-10 23:45 | NUR ---
PHYSICAL ASSESMENT COMPLETE. PT C/O PAIN AND DISCOMFORT. PT STATES HE HAS CHRONIC BACK PAIN. SCHEDULED MEDICATIONS AND PRN MEDICATION ADMINISTERED, SEE E-MAR. PT DENIES ANY NEEDS AT THIS TIME. PLAN OF CARE REVIEWED, PT DENIES QUESTIONS, VERBALIZES UNDERSTANDING. ITEMS WITHIN REACH, BED LOCKED IN LOW POSITION W/ BEDRAILS UP X2. CALL DENNISON WITHIN REACH, AGREES TO CALL PRN.
[2020-12-11] VITALS (9 sets, daily range): BP systolic 118–155; BP diastolic 70–92
--- NOTE | 2020-12-11 05:10 | NUR ---
PT RESTING IN BED, NO SIGNS OF DISTRESS NOTED, RESP EVEN AND UNLABORED. PT VOICES NO NEEDS OR COMPLAINTS AT THIS TIME. CALL LIGHT IN REACH, CONTINUE TO MONITOR.
[2020-12-11 05:38] LABS: HEMATOCRIT 40.3 % (39.0-50.0); HEMOGLOBIN 13.1 g/dl (14.0-18.0); IMMATURE GRANULOCYTES 0.3 % (0.0-5.0); MEAN CORPUSCULAR HGB 27.6 pG CALC (26.0-32.0); MEAN CORPUSCULAR HGB CONC 32.5 g/dL CAL (32.0-36.0); NEUT# 10.46 thou/uL (1.82-7.42); RED BLOOD COUNT 4.74 mill/uL (4.70-6.10); RED CELL DISTRI WIDTH 14.1 % (11.5-15.5)
[2020-12-11 05:55] LABS: ANION GAP 13 (6-22 (CALC)); BUN 10 mg/dL (9-20); BUN/CREATININE RATIO 22 (12-20 (CALC)); CARBON DIOXIDE 24 mmol/l (22-30); CHLORIDE 104 mmol/l (95-108); CREATININE 0.5 mg/dL (0.7-1.3); GFR > 60 ML/MIN (>=60 (CALC)); GFR FOR AFR.AMER. > 60 ML/MIN (>=60 (CALC)); MAGNESIUM 1.8 mg/dL (1.6-2.3); POTASSIUM 3.6 mmol/l (3.5-5.1); SODIUM 138 mmol/l (137-146)
--- NOTE | 2020-12-11 09:00 | NUR ---
PT IN ROOM DISCUSSING POC WITH DR. SHAVER AND ANASTACIA BURGESS. PT LEFT FOR SURGERY AT 0853.
--- NOTE | 2020-12-11 11:26 | NUR ---
S: ODALYS CHAVEZ is a 35 M who presents with groin abscess, diabetes, HTN, and chronic pain symdrome. He has a history of type 2 diabetes, tobacco use, heart disease, HTN, lung disease, chronic sciatica, hiatal hernia, anxiety/depression, cystic acne, morbid obesity, cholesterol, chronic back/wrist pain, GERD, stomach ulcers, asthma, COPD, chronic MRSA infections, and +TOB abscess. All medications in patient's chart were reviewed. O: VS: BP 130/75 mmHg, P 80 bpm, RR 24 breaths/min, T 99.1 degF W 168 kg, HT 73 in, Scr= 0.5 mg/dL, CrCl= 339 ml/min A: Blood culture is pending. P: Patient is on Zosyn 4.5g IV Q6H. Vancomycin ordered for pharmacy to dose. Start Vancomycin 1500mg IV Q8H. Vancomycin trough is drawn before the 4th dose on 12/12/20 at 0751. Vancomycin goal trough is between 10-20 mcg/ml. Pharmacy will follow and or advise on antibiotics use as needed.
--- NOTE | 2020-12-11 12:00 | NUR ---
PT STILL IN SURGERY
--- NOTE | 2020-12-11 16:17 | NUR ---
PT IS A&O WITH FAMILY AT BEDSIDE. PATIENT RATES A PAIN OF 6 BUT UNDERSTANDS TO NOTIFY NURSE FOR PAIN. CALL LIGHT IS WITHIN REACH. DRESSING IS CDI.
--- NOTE | 2020-12-11 23:33 | NUR ---
PHYSICAL ASSESMENT COMPLETE. PT CURRENTLY C/O PAIN AND DISCOMFORT. SCHEDULED MEDICATIONS AND PRN MEDICATION ADMINISTERED, SEE E-MAR. PT PO WOUND DRESSING CHANGED WET TO DRY. PT WAS PREMEDICATED AND TOLERATED THE PROCEDURE WELL. PT DENIES ANY NEEDS AT THIS TIME. PLAN OF CARE REVIEWED, PT DENIES QUESTIONS, VERBALIZES UNDERSTANDING. ITEMS WITHIN REACH, BED LOCKED IN LOW POSITION W/ BEDRAILS UP X2. CALL DENNISON WITHIN REACH, AGREES TO CALL PRN.
--- NOTE | 2020-12-12 | NUR ---
PT LAYING IN BED WITH EYES CLOSED, APPEARS TO BE SLEEPING, APPEARS COMFORTABLE AND IN NO DISTRESS. RESPIRATIONS REGULAR AND UNLABORED. ITEMS REMAIN WITHIN REACH, CALL DENNISON REMAINS WITHIN REACH. BED REMAINS LOCKED AND IN LOW POSITION WITH BEDRAILS UP X2. WILL CONTINUE TO MONITOR.
[2020-12-12 04:00] VITALS: BP 126/75
[2020-12-12 05:31] LABS: HEMATOCRIT 37.4 % (39.0-50.0); HEMOGLOBIN 11.8 g/dl (14.0-18.0); MEAN CELL VOLUME 86.4 fL CALC (80.0-100.0); MEAN CORPUSCULAR HGB 27.3 pG CALC (26.0-32.0); MEAN CORPUSCULAR HGB CONC 31.6 g/dL CAL (32.0-36.0); RED BLOOD COUNT 4.33 mill/uL (4.70-6.10); RED CELL DISTRI WIDTH 14.1 % (11.5-15.5)
[2020-12-12 05:42] LABS: ANION GAP 10 (6-22 (CALC)); BUN 7 mg/dL (9-20); BUN/CREATININE RATIO 15 (12-20 (CALC)); CARBON DIOXIDE 27 mmol/l (22-30); CHLORIDE 105 mmol/l (95-108); CREATININE 0.5 mg/dL (0.7-1.3); GFR > 60 ML/MIN (>=60 (CALC)); GFR FOR AFR.AMER. > 60 ML/MIN (>=60 (CALC)); POTASSIUM 3.5 mmol/l (3.5-5.1); SODIUM 138 mmol/l (137-146)
[2020-12-12 08:00] VITALS: BP 122/77
--- NOTE | 2020-12-12 08:24 | NUR ---
TUNDE OBTAINED FROM RT SUBCLAVIAN CENTRAL LINE. SPECIMEN LABELED WITH THIS WRITERS INITIALS, DATE AND TIME.
--- NOTE | 2020-12-12 08:30 | NUR ---
PT AWAKE/ A&O X3 IN BED. PT STATES FEELING DISCOMFORT DUE TO ABCESS SURGERY DILAUDID WAS GIVEN. PT HAS CENTRAL LINE: TRIPLE LUMEN R SUBCLAVIAN NO LEAKS/ INFILTRATION NOTED. CALL LIGHT WITHIN REACH.
--- NOTE | 2020-12-12 09:33 | NUR ---
DR SHAVER AND Pankaj COTTON APRN AT BEDSIDE DISCUSSING POC
--- NOTE | 2020-12-12 11:40 | NUR ---
ASSESSED AND PERFORMED WOUND CARE WITH LORI ORDONEZ. NO FOUL/PUSS NOTED IN WOUND. WOUND WAS DEEP AND MOIST. PT WAS GIVEN DILAUDID AT 1121 BEFORE PERFORMING CARE BUT STILL WAS IN PAIN.
--- NOTE | 2020-12-12 13:06 | NUR ---
S: ODALYS CHAVEZ is a 35 M who presents with groin abscess, diabetes, HTN and chronic pain syndrome. He has a history of diabetes, heart disease, hypertension, lung disease, sciatica, hernia, anxiety, depression, obesity, chronic back/wrist pain, GERD, stomach ulcers, asthma, COPD+tob abscess. All medications in patient's chart were reviewed. O: VS: BP:122/77mmHg , P: 87 beats/min, RR: 20breaths/min ,T: 98.4 degree F W: 167.83kg, HT: 73in, Scr=0.5mg/dL ,CrCl= 339ml/min Vancomycin trough 12/12 @ 0810 = 7 mcg/ml A: Blood culture pending. Wound culture pending, no growth @ 24 hours P: Patient is on Zosyn 4.5g IV Q6H . Vancomycin ordered for pharmacy to dose. Continue Vancomycin 1500mg IV Q8H. Vancomycin trough is drawn before the 4th dose on 12/12/20 @ 0730. Vancomycin goal trough is between 10-15 mcg/ml. Pharmacy will follow and or advise on antibiotics use as needed.
--- NOTE | 2020-12-12 14:47 | NUR ---
VERBAL ORDER OBTAINED BY DR SHAVER FOR DILAUDID 1 MG Q6 HRS PRN FOR SEVERE PAIN. ORDER WRITTEN AND FAXED TO PHARMACY
[2020-12-12 15:13] VITALS: BP 138/81
--- NOTE | 2020-12-12 16:03 | NUR ---
PT SITTING IN BED. AGITATED TOWARDS THE CHANGE OF PAIN MEDICATION. DILAUDID IS NOW GIVEN Q6H FOR THE REMAINING OF THE DAY OF 12/12/2020 . IV SITE IS PATENT, NO SIGN OF LEAK/ INFILTRATION. CALL LIGHT IS WITHIN REACH. NO OTHER DISTRESS NOTED.
--- NOTE | 2020-12-12 18:03 | NUR ---
ENCOURAGED SECOND DRESSING CHANGE TO PATIENT. PT STATES THEY WANT TO WAIT FOR PAIN MEDICATION BEFORE DRESSING CHANGE IS PERFORMED.
--- NOTE | 2020-12-12 18:38 | NUR ---
PTS DRESSING CLEAN DRY AND INTACT. NO EXCESS SATURATION OR DRAINAGE NOTED ON DRESSING. PT WAITING FOR NEXT PAIN MEDICATION BEFORE NEXT DRESSING CHANGE.
[2020-12-12 19:05] VITALS: BP 116/70
--- NOTE | 2020-12-12 21:00 | NUR ---
PT RESTING IN BED WATCHING TV, NO SIGNS OF DISTRESS NOTED, RESP EVEN AND UNLABORED. DISCUSSED POC, PT HAS IVF TO TRIPLE LUMEN CATH TO R SUBCLAVIAN, SITE APPEARS HEALTHY. DRESSING TO L GROIN CDI, PT MEDICATED PER APR. REQUESTING TO HAVE IV PAIN MED AT 2130 FOR DRESSING CHANGE, ASSESSMENT COMPLETED, CALL LIGHT IN REACH,CONTINUE TO MONITOR.
--- NOTE | 2020-12-12 21:27 | NUR ---
PT RESTING IN BED, MEDICATED FOR PAIN PRIOR TO DRESSING CHANGE. PT POSITIONED IN BED FOR ACCESS TO DRESSING. NOTED SS DRAINAGE TO SOILED DRESSING. SITE APPEARS HEALTHY, CLEANSED WITH NS AND PACKED WITH KERLEX, COVERED WITH 4X4 AND ABD PAD,SECURED WITH TAPE. PT TOLERATED WELL. CALL LIGHT IN REACH, CONTINUE TO MONITOR.
--- NOTE | 2020-12-13 00:20 | NUR ---
IV ANTIBIOTIC INITIATED. PT MEDICATED PER MAR, CALL LIGHT IN REACH,CONTINUE TO MONITOR.
--- NOTE | 2020-12-13 03:36 | NUR ---
PT RESTING IN BED, C/O PAIN 09/30. PT MEDICATED FOR PAIN, DISCUSSED DRESSING CHANGE AT THIS TIME, PT DECLINED STATES HE WOULD PREFER TO WAIT ANOTHER 6HR UNTIL NEXT DILAUDID DOSE FOR DRESSING CHANGE. NO SIGNS OF DISTRESS NOTED, RESP EVEN AND UNLABORED. CALL LIGHT IN REACH,CONTINUE TO MONITOR.
[2020-12-13 03:50] VITALS: BP 128/81
[2020-12-13 06:01] LABS: HEMATOCRIT 36.4 % (39.0-50.0); HEMOGLOBIN 11.6 g/dl (14.0-18.0); MEAN CELL VOLUME 87.1 fL CALC (80.0-100.0); MEAN CORPUSCULAR HGB 27.8 pG CALC (26.0-32.0); MEAN CORPUSCULAR HGB CONC 31.9 g/dL CAL (32.0-36.0); RED BLOOD COUNT 4.18 mill/uL (4.70-6.10); RED CELL DISTRI WIDTH 13.9 % (11.5-15.5)
[2020-12-13 06:29] LABS: ANION GAP 10 (6-22 (CALC)); BUN 7 mg/dL (9-20); BUN/CREATININE RATIO 12 (12-20 (CALC)); CARBON DIOXIDE 28 mmol/l (22-30); CHLORIDE 104 mmol/l (95-108); CREATININE 0.5 mg/dL (0.7-1.3); GFR > 60 ML/MIN (>=60 (CALC)); GFR FOR AFR.AMER. > 60 ML/MIN (>=60 (CALC)); POTASSIUM 3.8 mmol/l (3.5-5.1); SODIUM 139 mmol/l (137-146)
[2020-12-13 07:30] VITALS: BP 128/81
--- NOTE | 2020-12-13 07:30 | NUR ---
PATIENT LAYING IN BED AT THIS TIME. MARIA EUGENIA RUSSO DRAWN AND SENT TO LAB. PATIENT ALERT AND ORIENTED AND WATCHING TV. HAND ASSEMBLER DONE LUNGS GONZALEZ ARE CLEAR PATIENT STATES HIS PAIN IS A "8" OUT OF THE PAIN SCALE OF 0=10 PATIENT HAS BEEN PREVIOUSLY MEDICATED AND AT THIS TIME. DRESSING TO LEFT UPPER GROIN BUTTOCKS AREA DRY AND INTACT. SIDERAILS ARE UP CALL LIGHT WITHIN REACH. WILL CONTINUE TO MONITOR.
--- NOTE | 2020-12-13 08:04 | NUR ---
MARIA EUGENIA MANRIQUE RESULTS ARE IN AT THIS TIME AND IS A 9 PHARMACY ANJUM NOTIFIED AND STATED TO [facility]ANG 0800 MARIA EUGENIA AT THIS TIME.
--- NOTE | 2020-12-13 09:14 | NUR ---
DR SHAVER AT BEDSIDE DISCUSSING POC
[2020-12-13 09:16] VITALS: BP 128/81
--- NOTE | 2020-12-13 09:36 | NUR ---
PT CARE RESUMED AT THIS TIME.
[2020-12-13] MEDS ORDERED: BACTRIM DS1 TAB PO (09:48)
--- NOTE | 2020-12-13 11:39 | NUR ---
PATIENT SITTING UP IN BED AT THIS TIME. PATIENT STATES HIS PAIN LEVEL IS A 4 AT THIS TIME. PATIENTS DRESSING IS DRY AND INTACT PATIENT REFUSED TO HAVE NURSE CHANGE DRESSING AT THIS TIME AND STATED HIS WILL DO IT WHEN HE GETS HOME. PATIENT HAS BEEN D/C AT THIS TIME AND ALEX VERBALIZES UNDERSTANDING OF D/C INSTRUCTIONS AT THIS TIME.
--- NOTE | 2020-12-13 12:35 | NUR ---
PATIENT GIVEN OXYCODONE ACETAMINOPHEN 10/325 MG FOR PAIN IN GROIN (L) BUTTOCKS. PATIENT VERBALIZE UNDERSTANDING OF DE INSTRUCTION AND UPPER RIGHT PIC LINE REMOVED UNDER ASEPTIC TECHIQUE. AREA CLEANED AND BIO-PATCH PLACED AND TEGADERM PLACE AND PATIENT GIVEN INSTRUCTIONS TO REMOVE AFTER 24 HOURS. AND SHOWER NORMALLY.
--- NOTE | 2020-12-13 12:45 | NUR ---
PICC LINE PULLED AT THIS TIME AND TIP INTACT. FILIBERTONET GETTING DRESSED TO BE D/C.
--- NOTE | 2020-12-13 13:00 | NUR ---
Discharge instructions given. Patient verbalizes understanding of same. Discharged in stable condition via Wheelchair to Home with family. All belongings sent with pt.
== END 2020-12-13 13:00 | disposition home or self-care (01) | DRG 580 ==
LOC: ED 15:23 → ED-I 21:29 → ED 21:37 → MS2 21:38
PROVIDERS: Nurse Practitioner; Physician Assistant Surgical; ADMIT Internal Medicine; ATTEND Internal Medicine
PROC: 0Y960ZZ Drainage of Left Inguinal Region, Open Approach (ICD-10-PCS; principal; 2020-12-11)
PROC: 02HV33Z Insertion of Infusion Device into Superior Vena Cava, Percutaneous Approach (ICD-10-PCS; 2020-12-11)
DX: L02.214 Cutaneous abscess of groin (principal); Z68.42 Body mass index [BMI] 45.0-49.9, adult; I10 Essential (primary) hypertension; E11.9 Type 2 diabetes mellitus without complications; J44.9 Chronic obstructive pulmonary disease, unspecified; E66.01 Morbid (severe) obesity due to excess calories; G89.4 Chronic pain syndrome; F41.9 Anxiety disorder, unspecified; F32.A Depression, unspecified; K21.9 Gastro-esophageal reflux disease without esophagitis; F17.210 Nicotine dependence, cigarettes, uncomplicated; Z87.11 Personal history of peptic ulcer disease; Z86.14 Personal history of Methicillin resistant Staphylococcus aureus infection; Z79.891 Long term (current) use of opiate analgesic; Z79.84 Long term (current) use of oral hypoglycemic drugs; Z79.4 Long term (current) use of insulin; Z20.822 Contact with and (suspected) exposure to COVID-19
CPT/HCPCS: C9290; J3370

== ENCOUNTER 2021-01-08 10:45 | Emergency (ER) | payer MEDICARE, OTHER ==
[~2021-01-08] VITALS: Ht 185.4 cm; Wt 115.0 kg
[~2021-01-08 10:45] MED LIST changes: +CARAFATE PO; +DEXILANT30 MG PO; +OXYCODONE10 M1 PO
[2021-01-08 12:07] LABS: HEMATOCRIT 40.3 % (39.0-50.0); IMMATURE GRANULOCYTES 0.3 % (0.0-5.0); MEAN CELL VOLUME 82.1 fL CALC (80.0-100.0); MEAN CORPUSCULAR HGB 27.7 pG CALC (26.0-32.0); MEAN CORPUSCULAR HGB CONC 33.7 g/dL CAL (32.0-36.0); NEUT# 6.61 thou/uL (1.82-7.42); RED BLOOD COUNT 4.91 mill/uL (4.70-6.10); RED CELL DISTRI WIDTH 13.9 % (11.5-15.5)
[2021-01-08 12:25] LABS: ALBUMIN 3.9 g/dL (3.2-5.0); ALKALINE PHOSPHATASE 98 u/l (38-126); ANION GAP 15 (6-22 (CALC)); BILIRUBIN, TOTAL 0.6 mg/dL (0.0-1.4); BUN 8 mg/dL (9-20); BUN/CREATININE RATIO 21 (12-20 (CALC)); CHLORIDE 106 mmol/l (95-108); CREATININE 0.4 mg/dL (0.7-1.3); GFR > 60 ML/MIN (>=60 (CALC)); GFR FOR AFR.AMER. > 60 ML/MIN (>=60 (CALC)); HEMOGLOBIN 13.6 g/dl (14.0-18.0); POTASSIUM 4.2 mmol/l (3.5-5.1); SGOT/AST 20 u/l (17-59); SODIUM 137 mmol/l (137-146); TOTAL PROTEIN 6.8 g/dL (6.3-8.2)
[2021-01-08 12:26] LABS: CARBON DIOXIDE 20 mmol/l (22-30)
[2021-01-08 12:34] VITALS: BP 168/97
[2021-01-08] MEDS ORDERED: NAPROXEN500 MG PO (12:38)
[2021-01-08] MEDS ORDERED: KEFLEX500 MG PO (12:38)
[2021-01-08] MEDS ORDERED: BACTRIM DS1 TAB PO (12:38)
[2021-01-08] MEDS ORDERED: ONDANSETRON4 MG PO (12:38)
== END 2021-01-08 12:45 | disposition home or self-care (01) ==
LOC: ED 10:45
PROVIDERS: Emergency Medicine
DX: L03.314 Cellulitis of groin (principal); E11.9 Type 2 diabetes mellitus without complications; I10 Essential (primary) hypertension; J44.9 Chronic obstructive pulmonary disease, unspecified; F41.9 Anxiety disorder, unspecified; F32.A Depression, unspecified; K21.9 Gastro-esophageal reflux disease without esophagitis; F17.200 Nicotine dependence, unspecified, uncomplicated; E66.01 Morbid (severe) obesity due to excess calories; Z68.33 Body mass index [BMI] 33.0-33.9, adult; Z87.11 Personal history of peptic ulcer disease; Z79.4 Long term (current) use of insulin; Z79.84 Long term (current) use of oral hypoglycemic drugs

== ENCOUNTER 2021-04-12 19:27 | Emergency (ER) | payer MEDICARE, OTHER ==
[~2021-04-12] VITALS: Ht 185.4 cm; Wt 169.0 kg
[~2021-04-12 19:27] MED LIST changes: +KEFLEX500 MG PO; +NAPROXEN500 MG PO; +ONDANSETRON4 MG PO
[2021-04-12 20:40] LABS: HEMATOCRIT 42.6 % (39.0-50.0); HEMOGLOBIN 13.6 g/dl (14.0-18.0); IMMATURE GRANULOCYTES 0.1 % (0.0-5.0); MEAN CELL VOLUME 85.5 fL CALC (80.0-100.0); MEAN CORPUSCULAR HGB 27.3 pG CALC (26.0-32.0); MEAN CORPUSCULAR HGB CONC 31.9 g/dL CAL (32.0-36.0); NEUT# 10.8 thou/uL (1.82-7.42); RED BLOOD COUNT 4.98 mill/uL (4.70-6.10); RED CELL DISTRI WIDTH 13.8 % (11.5-15.5)
[2021-04-12 21:00] LABS: ALBUMIN 3.8 g/dL (3.2-5.0); ALKALINE PHOSPHATASE 81 u/l (38-126); AMYLASE 60 u/l (30-110); ANION GAP 12 (6-22 (CALC)); BUN 13 mg/dL (9-20); BUN/CREATININE RATIO 20 (12-20 (CALC)); CARBON DIOXIDE 25 mmol/l (22-30); CHLORIDE 106 mmol/l (95-108); CREATININE 0.6 mg/dL (0.7-1.3); GFR > 60 ML/MIN (>=60 (CALC)); GFR FOR AFR.AMER. > 60 ML/MIN (>=60 (CALC)); LIPASE 53 u/l (23-300); POTASSIUM 3.6 mmol/l (3.5-5.1); SGOT/AST 21 u/l (17-59); SODIUM 140 mmol/l (137-146); TOTAL PROTEIN 6.7 g/dL (6.3-8.2)
[2021-04-12 21:01] LABS: BILIRUBIN, TOTAL 0.2 mg/dL (0.0-1.4)
[2021-04-12 21:12] LABS: MYOGLOBIN 22 ng/mL (0 - 121)
[2021-04-12 22:31] LABS: URINE BILIRUBIN - DIPSTICK NEGATIVE (NEGATIVE); URINE BLOOD DIPSTICK NEGATIVE (NEGATIVE); URINE COLOR YELLOW; URINE GLUCOSE - DIPSTICK NEGATIVE (NEGATIVE); URINE KETONE TRACE mg/dL (NEGATIVE); URINE LEUK ESTERASE NEGATIVE (NEGATIVE); URINE PROTEIN - DIPSTICK NEGATIVE (NEG-TRACE); URINE SPECIFIC GRAVITY >=1.030; URINE UROBILINOGEN - DIPSTICK 0.2 E.U./dL (0.2)
[2021-04-12 22:32] LABS: URINE NITRITE - DIPSTICK NEGATIVE (Negative)
[2021-04-12 22:57] VITALS: BP 153/95
== END 2021-04-12 23:11 | disposition home or self-care (01) ==
LOC: ED 19:27
PROVIDERS: Emergency Medicine
DX: K29.70 Gastritis, unspecified, without bleeding (principal); I10 Essential (primary) hypertension; E11.9 Type 2 diabetes mellitus without complications; J44.9 Chronic obstructive pulmonary disease, unspecified; K21.00 Gastro-esophageal reflux disease with esophagitis, without bleeding; F41.9 Anxiety disorder, unspecified; F32.A Depression, unspecified; E66.01 Morbid (severe) obesity due to excess calories; Z87.11 Personal history of peptic ulcer disease; Z79.84 Long term (current) use of oral hypoglycemic drugs; Z79.4 Long term (current) use of insulin
CPT/HCPCS: S0164

== ENCOUNTER 2021-04-13 17:53 | Emergency (ER) | payer MEDICARE, OTHER ==
[~2021-04-13] VITALS: Ht 185.4 cm; Wt 158.7 kg
[2021-04-13 19:19] VITALS: BP 151/85
== END 2021-04-13 19:27 | disposition home or self-care (01) ==
LOC: ED 17:53
DX: K29.70 Gastritis, unspecified, without bleeding (principal); E11.9 Type 2 diabetes mellitus without complications; I10 Essential (primary) hypertension; F32.A Depression, unspecified; F41.9 Anxiety disorder, unspecified; E66.01 Morbid (severe) obesity due to excess calories; J44.9 Chronic obstructive pulmonary disease, unspecified; Z87.11 Personal history of peptic ulcer disease; Z79.84 Long term (current) use of oral hypoglycemic drugs; Z79.4 Long term (current) use of insulin

== ENCOUNTER 2022-03-03 12:29 | Observation (INO) | payer MEDICARE, OTHER ==
[~2022-03-03] VITALS: Ht 185.4 cm; Wt 141.0 kg
[2022-03-03 13:08] LABS: BASO% 0.2 % (0-3); EOS% 1.3 % (0-8); HEMATOCRIT 43.4 % (39.0-50.0); HEMOGLOBIN 14.8 g/dl (14.0-18.0); IMMATURE GRANULOCYTES 0.2 % (0.0-5.0); MEAN CELL VOLUME 83.9 fL CALC (80.0-100.0); MEAN CORPUSCULAR HGB 28.6 pG CALC (26.0-32.0); MEAN CORPUSCULAR HGB CONC 34.1 g/dL CAL (32.0-36.0); MONO% 5.4 % (2-13); NEUT# 9.93 thou/uL (1.82-7.42); NEUT% 73.9 % (42-76); RED BLOOD COUNT 5.17 mill/uL (4.70-6.10); RED CELL DISTRI WIDTH 14.2 % (11.5-15.5)
[2022-03-03 13:31] LABS: ALBUMIN 4.4 g/dL (3.2-5.0); ALKALINE PHOSPHATASE 90 u/l (38-126); ANION GAP 14 (6-22 (CALC)); BUN 12 mg/dL (9-20); BUN/CREATININE RATIO 24 (12-20 (CALC)); CARBON DIOXIDE 24 mmol/l (22-30); CHLORIDE 104 mmol/l (95-108); CREATININE 0.5 mg/dL (0.7-1.3); GFR FOR AFR.AMER. > 60 ML/MIN (>=60 (CALC)); GFR OTHER RACES > 60 ML/MIN (>=60 (CALC)); LIPASE 593 u/l (23-300); POTASSIUM 4.3 mmol/l (3.5-5.1); SGOT/AST 29 u/l (17-59); SODIUM 137 mmol/l (137-146); TOTAL PROTEIN 7.3 g/dL (6.3-8.2)
[2022-03-03 13:32] LABS: BILIRUBIN, TOTAL 0.2 mg/dL (0.0-1.4)
[2022-03-03 14:24] LABS: URINE BILIRUBIN - DIPSTICK NEGATIVE (NEGATIVE); URINE BLOOD DIPSTICK NEGATIVE (NEGATIVE); URINE COLOR YELLOW; URINE GLUCOSE - DIPSTICK 500 mg/dL (NEGATIVE); URINE KETONE 15 mg/dL (NEGATIVE); URINE LEUK ESTERASE NEGATIVE (NEGATIVE); URINE PROTEIN - DIPSTICK NEGATIVE (NEG-TRACE); URINE SPECIFIC GRAVITY 1.025; URINE UROBILINOGEN - DIPSTICK 0.2 E.U./dL (0.2)
[2022-03-03 14:25] LABS: URINE NITRITE - DIPSTICK NEGATIVE (Negative)
[2022-03-03] MEDS ORDERED: DOXYCYC MONO100 M3 PO (18:27)
[2022-03-03] MEDS ORDERED: METFORMIN HCL500 M1 PO (18:28)
[2022-03-03] MEDS ORDERED: MORPHINE SUL30 M3 PO (18:29)
[2022-03-03] MEDS ORDERED: OXYCODO-APAP1 TA2 PO (18:29)
[2022-03-03] MEDS ORDERED: XANAX1 MG PO (18:31)
[2022-03-03] MEDS ORDERED: SIMVASTATIN10 MG PO (18:33)
[2022-03-03] MEDS ORDERED: TIZANIDINE4 MG PO (18:34)
[2022-03-03] MEDS ORDERED: CREON1 CAP PO (18:36)
[2022-03-03] MEDS ORDERED: FAMOTIDINE20 M1 PO (18:36)
[2022-03-03] MEDS ORDERED: METFORMIN HCL1000 MG PO (19:28)
[2022-03-03 19:33] VITALS: BP 129/72
[2022-03-03 23:45] VITALS: BP 104/46
[2022-03-04 03:23] VITALS: BP 111/75
[2022-03-04 06:00] VITALS: BP 106/65
[2022-03-04 06:17] LABS: ALKALINE PHOSPHATASE 70 u/l (38-126); ANION GAP 8 (6-22 (CALC)); BUN 12 mg/dL (9-20); BUN/CREATININE RATIO 25 (12-20 (CALC)); CARBON DIOXIDE 26 mmol/l (22-30); CHLORIDE 108 mmol/l (95-108); CREATININE 0.5 mg/dL (0.7-1.3); GFR FOR AFR.AMER. > 60 ML/MIN (>=60 (CALC)); GFR OTHER RACES > 60 ML/MIN (>=60 (CALC)); POTASSIUM 3.5 mmol/l (3.5-5.1); SGOT/AST 30 u/l (17-59); SODIUM 138 mmol/l (137-146); TOTAL PROTEIN 6.1 g/dL (6.3-8.2)
[2022-03-04 06:18] LABS: ALBUMIN 3.5 g/dL (3.2-5.0); BILIRUBIN, TOTAL 0.3 mg/dL (0.0-1.4)
[2022-03-04 06:19] LABS: BASO% 0.2 % (0-3); EOS% 1.7 % (0-8); HEMATOCRIT 38.8 % (39.0-50.0); HEMOGLOBIN 13.2 g/dl (14.0-18.0); IMMATURE GRANULOCYTES 0.2 % (0.0-5.0); LYMPH% 18.6 % (15-41); MEAN CELL VOLUME 86.2 fL CALC (80.0-100.0); MEAN CORPUSCULAR HGB 29.3 pG CALC (26.0-32.0); MONO% 7.7 % (2-13); NEUT# 8.77 thou/uL (1.82-7.42); NEUT% 71.6 % (42-76); RED BLOOD COUNT 4.5 mill/uL (4.70-6.10); RED CELL DISTRI WIDTH 14.4 % (11.5-15.5)
[2022-03-04 10:54] VITALS: BP 113/72
[2022-03-04 14:11] VITALS: BP 120/88
[2022-03-04 18:59] VITALS: BP 111/65
[2022-03-05 00:01] VITALS: BP 143/86
[2022-03-05 04:15] VITALS: BP 105/63
[2022-03-05 04:44] LABS: BASO% 0.1 % (0-3); HEMATOCRIT 38.6 % (39.0-50.0); IMMATURE GRANULOCYTES 0.3 % (0.0-5.0); MEAN CELL VOLUME 85.6 fL CALC (80.0-100.0); MEAN CORPUSCULAR HGB 28.8 pG CALC (26.0-32.0); MEAN CORPUSCULAR HGB CONC 33.7 g/dL CAL (32.0-36.0); NEUT# 6.52 thou/uL (1.82-7.42); NEUT% 65.6 % (42-76); RED BLOOD COUNT 4.51 mill/uL (4.70-6.10); RED CELL DISTRI WIDTH 14.2 % (11.5-15.5)
[2022-03-05 04:58] LABS: ALBUMIN 3.4 g/dL (3.2-5.0); ALKALINE PHOSPHATASE 72 u/l (38-126); ANION GAP 7 (6-22 (CALC)); BILIRUBIN, TOTAL 0.3 mg/dL (0.0-1.4); BUN 8 mg/dL (9-20); BUN/CREATININE RATIO 14 (12-20 (CALC)); CARBON DIOXIDE 31 mmol/l (22-30); CHLORIDE 104 mmol/l (95-108); CREATININE 0.6 mg/dL (0.7-1.3); GFR FOR AFR.AMER. > 60 ML/MIN (>=60 (CALC)); GFR OTHER RACES > 60 ML/MIN (>=60 (CALC)); MAGNESIUM 2.2 mg/dL (1.6-2.3); POTASSIUM 3.9 mmol/l (3.5-5.1); SGOT/AST 20 u/l (17-59); SODIUM 138 mmol/l (137-146)
[2022-03-05 06:18] VITALS: BP 115/72
[2022-03-05 10:04] VITALS: BP 101/66
== END 2022-03-05 13:34 | disposition home or self-care (01) ==
LOC: ED 12:29 → ED-I 17:40 → ED 18:17 → MS2 18:18
PROVIDERS: Family Medicine; Nurse Practitioner Family; ADMIT Internal Medicine; ATTEND Internal Medicine
PROC: 02HV33Z Insertion of Infusion Device into Superior Vena Cava, Percutaneous Approach (ICD-10-PCS; principal; 2022-03-03)
DX: K85.90 Acute pancreatitis without necrosis or infection, unspecified (principal); K86.1 Other chronic pancreatitis; I10 Essential (primary) hypertension; E11.9 Type 2 diabetes mellitus without complications; E66.01 Morbid (severe) obesity due to excess calories; G89.4 Chronic pain syndrome; F41.9 Anxiety disorder, unspecified; K21.9 Gastro-esophageal reflux disease without esophagitis; F32.A Depression, unspecified; J44.9 Chronic obstructive pulmonary disease, unspecified; K44.9 Diaphragmatic hernia without obstruction or gangrene; K22.70 Barrett's esophagus without dysplasia; Z87.11 Personal history of peptic ulcer disease; Z79.4 Long term (current) use of insulin; Z79.84 Long term (current) use of oral hypoglycemic drugs
CPT/HCPCS: J2060; S0164

== ENCOUNTER 2022-07-09 09:03 | Emergency (ER) | payer MEDICARE, OTHER ==
[~2022-07-09] VITALS: Ht 185.4 cm; Wt 143.0 kg
[~2022-07-09 09:03] MED LIST changes: +CREON1 CAP PO; +DOXYCYC MONO100 M3 PO; +FAMOTIDINE20 M1 PO; +METFORMIN HCL1000 MG PO; +METFORMIN HCL500 M1 PO; +MORPHINE SUL30 M3 PO; +OXYCODO-APAP1 TA2 PO; +SIMVASTATIN10 MG PO; +TIZANIDINE4 MG PO
[2022-07-09 09:56] LABS: ALBUMIN 4.3 g/dL (3.2-5.0); ALKALINE PHOSPHATASE 114 u/l (38-126); ANION GAP 17 (6-22 (CALC)); BUN 9 mg/dL (9-20); BUN/CREATININE RATIO 19 (12-20 (CALC)); CARBON DIOXIDE 21 mmol/l (22-30); CHLORIDE 100 mmol/l (95-108); CREATININE 0.5 mg/dL (0.7-1.3); GFR FOR AFR.AMER. > 60 ML/MIN (>=60 (CALC)); GFR OTHER RACES > 60 ML/MIN (>=60 (CALC)); LIPASE 187 u/l (23-300); SGOT/AST 21 u/l (17-59); SODIUM 135 mmol/l (137-146); TOTAL PROTEIN 6.9 g/dL (6.3-8.2)
[2022-07-09 09:57] LABS: BASO% 0.4 % (0-3); BILIRUBIN, TOTAL 0.6 mg/dL (0.2-1.3); EOS% 1.1 % (0-8); HEMATOCRIT 44.9 % (39.0-50.0); HEMOGLOBIN 14.7 g/dl (14.0-18.0); IMMATURE GRANULOCYTES 0.2 % (0.0-5.0); LYMPH% 19.2 % (15-41); MEAN CORPUSCULAR HGB 28.2 pG CALC (26.0-32.0); MEAN CORPUSCULAR HGB CONC 32.7 g/dL CAL (32.0-36.0); MONO% 5.9 % (2-13); NEUT# 8.78 thou/uL (1.82-7.42); NEUT% 73.2 % (42-76); RED BLOOD COUNT 5.22 mill/uL (4.70-6.10); RED CELL DISTRI WIDTH 13.7 % (11.5-15.5)
[2022-07-09] MEDS ORDERED: BACTRIM DS1 TAB PO (11:35)
[2022-07-09] MEDS ORDERED: CIPROFLOXACN500 MG PO (11:35)
[2022-07-09] MEDS ORDERED: NOVOLOG100 UNIT SC (11:42)
[2022-07-09] MEDS ORDERED: LEVEMIR100 UNIT SC (11:42)
[2022-07-09 11:45] VITALS: BP 125/80
== END 2022-07-09 12:08 | disposition home or self-care (01) ==
LOC: ED 09:03
PROVIDERS: Family Medicine
DX: E11.65 Type 2 diabetes mellitus with hyperglycemia (principal); S91.331A Puncture wound without foreign body, right foot, initial encounter; I10 Essential (primary) hypertension; F41.9 Anxiety disorder, unspecified; F17.200 Nicotine dependence, unspecified, uncomplicated; W25.XXXA Contact with sharp glass, initial encounter; Z79.4 Long term (current) use of insulin; Z79.84 Long term (current) use of oral hypoglycemic drugs

== ENCOUNTER 2022-10-12 15:35 | Emergency (ER) | payer MEDICARE, OTHER ==
[~2022-10-12] VITALS: Ht 185.4 cm; Wt 133.0 kg
[~2022-10-12 15:35] MED LIST changes: +CIPROFLOXACN500 MG PO; +LEVEMIR100 UNIT SC; +NOVOLOG100 UNIT SC
[2022-10-12 16:11] VITALS: BP 142/79
[2022-10-12 16:16] VITALS: BP 130/84
[2022-10-12 16:48] VITALS: BP 123/76
[2022-10-12 17:01] VITALS: BP 140/83
[2022-10-12 17:16] VITALS: BP 133/82
[2022-10-12 17:31] VITALS: BP 124/81
== END 2022-10-12 17:53 | disposition home or self-care (01) ==
LOC: ED 15:35
DX: M25.561 Pain in right knee (principal); G89.4 Chronic pain syndrome; E11.9 Type 2 diabetes mellitus without complications; I10 Essential (primary) hypertension; J44.9 Chronic obstructive pulmonary disease, unspecified; F41.9 Anxiety disorder, unspecified; F32.A Depression, unspecified; E66.01 Morbid (severe) obesity due to excess calories; F17.210 Nicotine dependence, cigarettes, uncomplicated; Z79.4 Long term (current) use of insulin

== ENCOUNTER 2023-04-18 10:34 | Emergency (ER) | payer MEDICARE, OTHER ==
[2023-04-18] VITALS (9 sets, daily range): BP systolic 87–179; BP diastolic 59–156
[~2023-04-18] VITALS: Ht 185.4 cm; Wt 104.0 kg
[2023-04-18] MEDS ORDERED: HYDROmorphone HCL 2 MG/AMP IM ONE (12:30)
[2023-04-18] MEDS ORDERED: ORPHENADRINE CITRATE 30 MG/ML AMP IM ONE (12:30)
[2023-04-18 13:03] LABS: URINE BILIRUBIN - DIPSTICK Negative (NEGATIVE); URINE BLOOD DIPSTICK Negative (NEGATIVE); URINE GLUCOSE - DIPSTICK >=1000 mg/dL (NEGATIVE); URINE KETONE >=160 mg/dL (NEGATIVE); URINE LEUK ESTERASE Negative (NEGATIVE); URINE NITRITE - DIPSTICK Negative (Negative); URINE PROTEIN - DIPSTICK Negative (NEG-TRACE); URINE UROBILINOGEN - DIPSTICK 0.2 E.U./dL (0.2)
[2023-04-18 13:04] LABS: URINE COLOR Yellow
[2023-04-18] MEDS ORDERED: NAPROXEN500 MG PO (13:26)
== END 2023-04-18 13:41 | disposition home or self-care (01) ==
LOC: ED 10:34
PROVIDERS: Nurse Practitioner
DX: M25.551 Pain in right hip (principal); R10.2 Pelvic and perineal pain; G89.4 Chronic pain syndrome; E11.9 Type 2 diabetes mellitus without complications; I10 Essential (primary) hypertension; F41.9 Anxiety disorder, unspecified; F32.A Depression, unspecified; E66.01 Morbid (severe) obesity due to excess calories; J44.9 Chronic obstructive pulmonary disease, unspecified; F17.210 Nicotine dependence, cigarettes, uncomplicated; Z79.891 Long term (current) use of opiate analgesic; Z79.4 Long term (current) use of insulin; Z79.84 Long term (current) use of oral hypoglycemic drugs

== ENCOUNTER 2023-11-20 20:04 | Emergency (ER) | payer MEDICARE, MEDICAID ==
[2023-11-20] VITALS (10 sets, daily range): BP systolic 99–128; BP diastolic 63–84
[~2023-11-20] VITALS: Ht 185.4 cm; Wt 152.0 kg
[~2023-11-20 20:04] MED LIST changes: +DEXILANT60 MG PO; +DOXYCYCLINE HY100 MG PO; +LIDOCAINE HCL VIS2 % PO
[2023-11-20] MEDS ORDERED: SODIUM CHLORIDE 0.9% 1,000 ML IV ONE (20:15)
[2023-11-20] MEDS ORDERED: ONDANSETRON HCl 4 MG/2 ML SDV IV ONE (20:15)
[2023-11-20 20:46] LABS: BASO% 0.1 % (0-3); EOS% 4.2 % (0-8); HEMATOCRIT 38.1 % (39.0-50.0); IMMATURE GRANULOCYTES 0.2 % (0.0-5.0); LYMPH% 19.6 % (15-41); MEAN CELL VOLUME 89.4 fL CALC (80.0-100.0); MEAN CORPUSCULAR HGB 28.2 pG CALC (26.0-32.0); MEAN CORPUSCULAR HGB CONC 31.5 g/dL CAL (32.0-36.0); NEUT# 7.79 thou/uL (1.82-7.42); NEUT% 67.9 % (42-76); RED BLOOD COUNT 4.26 mill/uL (4.70-6.10); RED CELL DISTRI WIDTH 13.9 % (11.5-15.5)
[2023-11-20 20:59] LABS: ALBUMIN 3.9 g/dL (3.2-5.0); ALKALINE PHOSPHATASE 58 u/l (38-126); ANION GAP 7 (6-22 (CALC)); BILIRUBIN, TOTAL 0.5 mg/dL (0.2-1.3); BUN 10 mg/dL (9-20); BUN/CREATININE RATIO 15 (12-20 (CALC)); CARBON DIOXIDE 30 mmol/l (22-30); CHLORIDE 106 mmol/l (95-108); CREATININE 0.7 mg/dL (0.7-1.3); ESTIMATED GFR 122 ML/MIN (>=90 (CALC)); ETHYL ALCOHOL 0 mg/dl (0-30); POTASSIUM 3.4 mmol/l (3.5-5.1); SGOT/AST 20 u/l (17-59); SODIUM 140 mmol/l (137-146); TOTAL PROTEIN 6.8 g/dL (6.3-8.2)
[2023-11-20] MEDS ORDERED: MORPHINE SULFATE 4 MG/ML VIAL IV ONE (23:00)
[2023-11-20] MEDS ORDERED: ONDANSETRON4 MG PO (23:46)
[2023-11-20] MEDS ORDERED: ZPAK PO (23:46)
[2023-11-21 00:03] VITALS: BP 120/72
== END 2023-11-21 00:03 | disposition home or self-care (01) ==
LOC: ED 20:04
PROVIDERS: Family Medicine
DX: R07.9 Chest pain, unspecified (principal); J40 Bronchitis, not specified as acute or chronic; E11.9 Type 2 diabetes mellitus without complications; I10 Essential (primary) hypertension; J44.9 Chronic obstructive pulmonary disease, unspecified; F41.9 Anxiety disorder, unspecified; F32.A Depression, unspecified; E66.01 Morbid (severe) obesity due to excess calories; K22.70 Barrett's esophagus without dysplasia; K21.9 Gastro-esophageal reflux disease without esophagitis; F17.200 Nicotine dependence, unspecified, uncomplicated; Z87.11 Personal history of peptic ulcer disease; Z79.891 Long term (current) use of opiate analgesic

== ENCOUNTER 2024-01-26 09:33 | Emergency (ER) | payer MEDICARE, MEDICAID ==
[~2024-01-26] VITALS: Ht 185.4 cm; Wt 131.0 kg
[~2024-01-26 09:33] MED LIST changes: +ZPAK PO
[2024-01-26 09:41] VITALS: BP 149/87
[2024-01-26] MEDS ORDERED: PIPERACILLIN Sodium-Tazobactam 3.375 GM in SODIUM CHLORIDE 0.9% 100 ML IV ONE (09:50)
[2024-01-26] MEDS ORDERED: VANCOMYCIN HCL 1 GM in SODIUM CHLORIDE 0.9% 250 ML IV ONE (09:50)
[2024-01-26] MEDS ORDERED: Diph, Acellular Pertussis, Tet 0.5 ML/VIAL (Tdap) SDV IM ONE (09:50)
[2024-01-26] MEDS ORDERED: SODIUM CHLORIDE 0.9% 1,000 ML IV ONE (09:55)
[2024-01-26] MEDS ORDERED: KETOROLAC TROMETHAMINE 15 MG/ML SDV IV ONE (09:55)
[2024-01-26] MEDS ORDERED: DiphenhydrAMINE HCL 50 MG/ML SDV IV ONE ×2 (09:55→10:20)
[2024-01-26] MEDS ORDERED: ONDANSETRON HCl 4 MG/2 ML SDV IV ONE (09:55)
[2024-01-26] MEDS ORDERED: HYDROmorphone HCL 2 MG/AMP IV ONE ×2 (09:55→12:05)
[2024-01-26 10:35] LABS: BASO% 0.4 % (0-3); EOS% 2.2 % (0-8); IMMATURE GRANULOCYTES 0.2 % (0.0-5.0); LYMPH% 19.5 % (15-41); MEAN CELL VOLUME 85.4 fL CALC (80.0-100.0); MEAN CORPUSCULAR HGB 27.4 pG CALC (26.0-32.0); MEAN CORPUSCULAR HGB CONC 32.1 g/dL CAL (32.0-36.0); MONO% 6.9 % (2-13); NEUT# 7.44 thou/uL (1.82-7.42); NEUT% 70.8 % (42-76); RED BLOOD COUNT 5.21 mill/uL (4.70-6.10); RED CELL DISTRI WIDTH 14.2 % (11.5-15.5)
[2024-01-26 10:40] LABS: HEMATOCRIT 44.5 % (39.0-50.0); HEMOGLOBIN 14.3 g/dl (14.0-18.0)
[2024-01-26 10:57] LABS: ALBUMIN 4.4 g/dL (3.2-5.0); BILIRUBIN, TOTAL 0.3 mg/dL (0.2-1.3); CREATININE 0.6 mg/dL (0.7-1.3); TOTAL PROTEIN 7.2 g/dL (6.3-8.2)
[2024-01-26 11:05] LABS: POTASSIUM 4.1 mmol/l (3.5-5.1)
[2024-01-26] MEDS ORDERED: BACTRIM DS1 TAB PO (11:24)
[2024-01-26 12:15] VITALS: BP 146/88
[2024-01-26 12:31] VITALS: BP 124/83
[2024-01-26 13:01] VITALS: BP 132/89
[2024-01-26 13:19] VITALS: BP 132/89
== END 2024-01-26 13:17 | disposition home or self-care (01) ==
LOC: ED 09:33
PROVIDERS: Emergency Medicine
DX: S80.862A Insect bite (nonvenomous), left lower leg, initial encounter (principal); I10 Essential (primary) hypertension; E11.9 Type 2 diabetes mellitus without complications; F41.9 Anxiety disorder, unspecified; F32.A Depression, unspecified; J44.9 Chronic obstructive pulmonary disease, unspecified; F17.200 Nicotine dependence, unspecified, uncomplicated; E66.01 Morbid (severe) obesity due to excess calories; W57.XXXA Bitten or stung by nonvenomous insect and other nonvenomous arthropods, initial encounter

== ENCOUNTER 2024-02-11 21:55 | Emergency (ER) | payer MEDICARE, MEDICAID ==
[~2024-02-11] VITALS: Ht 185.4 cm; Wt 154.0 kg
[2024-02-11] MEDS ORDERED: SODIUM CHLORIDE 0.9% 1,000 ML IV ONE (22:15)
[2024-02-11 22:17] VITALS: BP 110/69
[2024-02-11 22:51] LABS: BASO% 0.2 % (0-3); EOS% 2.1 % (0-8); HEMATOCRIT 44.5 % (39.0-50.0); HEMOGLOBIN 14.5 g/dl (14.0-18.0); IMMATURE GRANULOCYTES 0.1 % (0.0-5.0); LYMPH% 13.8 % (15-41); MEAN CELL VOLUME 87.1 fL CALC (80.0-100.0); MEAN CORPUSCULAR HGB 28.4 pG CALC (26.0-32.0); MEAN CORPUSCULAR HGB CONC 32.6 g/dL CAL (32.0-36.0); MONO% 7.2 % (2-13); NEUT# 10.42 thou/uL (1.82-7.42); NEUT% 76.6 % (42-76); RED BLOOD COUNT 5.11 mill/uL (4.70-6.10); RED CELL DISTRI WIDTH 14.1 % (11.5-15.5)
[2024-02-11 23:08] LABS: ALBUMIN 4.3 g/dL (3.2-5.0); ALKALINE PHOSPHATASE 93 u/l (38-126); ANION GAP 16 (6-22 (CALC)); BILIRUBIN, TOTAL 0.6 mg/dL (0.2-1.3); BUN 9 mg/dL (9-20); BUN/CREATININE RATIO 15 (12-20 (CALC)); CARBON DIOXIDE 28 mmol/l (22-30); CHLORIDE 101 mmol/l (95-108); CREATININE 0.6 mg/dL (0.7-1.3); ESTIMATED GFR 128 ML/MIN (>=90 (CALC)); ETHYL ALCOHOL 0 mg/dl (0-30); MAGNESIUM 1.8 mg/dL (1.6-2.3); POTASSIUM 3.8 mmol/l (3.5-5.1); SGOT/AST 25 u/l (17-59); SODIUM 140 mmol/l (137-146); TOTAL PROTEIN 6.8 g/dL (6.3-8.2)
[2024-02-12] MEDS ORDERED: LACTATED RINGER'S 1,000 ML IV ONE (01:35)
[2024-02-12 03:44] LABS: URINE BILIRUBIN - DIPSTICK Negative (NEGATIVE); URINE BLOOD DIPSTICK Negative (NEGATIVE); URINE COLOR Yellow; URINE GLUCOSE - DIPSTICK 100 mg/dL (NEGATIVE); URINE KETONE Trace mg/dL (NEGATIVE); URINE LEUK ESTERASE Negative (NEGATIVE); URINE NITRITE - DIPSTICK Negative (Negative); URINE PH 5.5 (4.5-8.0); URINE PROTEIN - DIPSTICK Trace mg/dL (NEG-TRACE); URINE SPECIFIC GRAVITY >=1.030; URINE UROBILINOGEN - DIPSTICK 0.2 E.U./dL (0.2)
[2024-02-12 04:12] VITALS: BP 100/73
[2024-02-12 04:31] VITALS: BP 98/67
== END 2024-02-12 04:30 | disposition home or self-care (01) ==
LOC: ED 21:55
PROVIDERS: Family Medicine
DX: T50.901A Poisoning by unspecified drugs, medicaments and biological substances, accidental (unintentional), initial encounter (principal); R40.4 Transient alteration of awareness; I10 Essential (primary) hypertension; E11.9 Type 2 diabetes mellitus without complications; F41.9 Anxiety disorder, unspecified; F32.A Depression, unspecified; E66.01 Morbid (severe) obesity due to excess calories; J44.9 Chronic obstructive pulmonary disease, unspecified; Z72.0 Tobacco use